=== PATIENT | male | born 1945 | race Caucasian/White ===

== ENCOUNTER → 2017-03-02 | Outpatient (CLI) | payer MEDICARE, BC ==
[~2017-03-02] VITALS: Ht 188 cm; Wt 108.0 kg
[~2017-03-02] MED LIST: ADVA115A INH; ALBU17IN INH; AVOD0.5C PO; FLOM5CAP PO; INSUHUMDS SC; INSULANT SC; LIDOCAINE 2% INJ 100 MG/5 ML SDV (FOR ANES.) As Ordered ONE; LIPI20TA PO; LISI40TAB PO; LR 1,000 ML IV SCH; METF500T PO; METO-207 PO; MULTLIQ7 PO; NEXI40CA PO; PROPOFOL 200 MG/20 ML VIAL As Ordered ONE
--- NOTE | 2017-03-02 14:18 | ROOR ---
Patient Name: Ko Pickard Procedure Date: 03/02/2017 1:30 PM Date of : 1945 Age: 71 Room: [facility] Gender: Male Note Status: Finalized Procedure: Colonoscopy Indications: Screening for colorectal malignant neoplasm, Last colonoscopy 10 years ago Providers: Brando Michael MD Referring MD: Conner Garcia MD Requesting Provider: Medicines: Monitored Anesthesia Care Complications: No immediate complications. Procedure: Pre-Anesthesia Assessment: - Prior to the procedure, a History and Physical was performed, and patient medications and allergies were reviewed. The patient is competent. The risks and benefits of the procedure and the sedation options and risks were discussed with the patient. All questions were answered and informed consent was obtained. Patient identification and proposed procedure were verified by the physician, the nurse and the anesthesiologist in the procedure room. Mental Status Examination: alert and oriented. Airway Examination: normal oropharyngeal airway and neck mobility. CV Examination: regular rate and rhythm. Prophylactic Antibiotics: The patient does not require prophylactic antibiotics. Prior Anticoagulants: The patient has taken no previous anticoagulant or antiplatelet agents. ASA Grade Assessment: III - A patient with severe systemic disease. After reviewing the risks and benefits, the patient was deemed in satisfactory condition to undergo the procedure. The anesthesia plan was to use monitored anesthesia care (MAC). Immediately prior to administration of medications, the patient was re-assessed for adequacy to receive sedatives. The heart rate, respiratory rate, oxygen saturations, blood pressure, adequacy of pulmonary ventilation, and response to care were monitored throughout the procedure. The physical status of the patient was re-assessed after the procedure. The Colonoscope was introduced through the anus and advanced to the cecum, identified by appendiceal orifice and ileocecal valve. The colonoscopy was performed without difficulty. The patient tolerated the procedure well. The quality of the bowel preparation was good. Findings: The perianal and digital rectal examinations were normal. A 4 mm polyp was found in the sigmoid colon. The polyp was 3-4mm and appeared inflamed. The appearance was similar to a pyogenic granuloma. Biopsies were taken with a cold forceps for histology. Estimated blood loss was minimal. The exam was otherwise without abnormality. Impression: - One 4 mm polyp in the sigmoid colon. Biopsied. - The examination was otherwise normal. Recommendation: - Discharge patient to home. - Resume previous diet. - Continue present medications. - Await pathology results. - Telephone endoscopist for pathology results in 10 days. Brando Michael MD 03/02/2017 2:17:55 PM Number of Addenda: 0 Note Initiated On: 03/02/2017 1:30 PM Estimated Blood Loss: Estimated blood loss was minimal.
[2017-03-02 14:51] VITALS: BP 157/78
== END | disposition home or self-care (01) ==
LOC: M OPP 12:56
PROVIDERS: ATTEND Surgery
DX: Z12.11 Encounter for screening for malignant neoplasm of colon (principal); K63.5 Polyp of colon; I10 Essential (primary) hypertension; E78.00 Pure hypercholesterolemia, unspecified; E11.9 Type 2 diabetes mellitus without complications; K74.60 Unspecified cirrhosis of liver; K21.9 Gastro-esophageal reflux disease without esophagitis; G57.93 Unspecified mononeuropathy of bilateral lower limbs; J44.9 Chronic obstructive pulmonary disease, unspecified; N40.0 Benign prostatic hyperplasia without lower urinary tract symptoms; Z79.899 Other long term (current) drug therapy; Z79.51 Long term (current) use of inhaled steroids; Z79.84 Long term (current) use of oral hypoglycemic drugs; Z79.4 Long term (current) use of insulin; Z95.5 Presence of coronary angioplasty implant and graft

== ENCOUNTER → 2017-04-15 | Outpatient (REF) | payer MEDICARE, BC ==
[~2017-04-15] MED LIST changes: -LIDOCAINE 2% INJ 100 MG/5 ML SDV (FOR ANES.) As Ordered ONE; -LR 1,000 ML IV SCH; -METF500T PO; +METF500T13 PO; -METO-207 PO; +METO1TAB7 PO; -PROPOFOL 200 MG/20 ML VIAL As Ordered ONE
== END ==
LOC: M LAB REF 12:02
PROVIDERS: ATTEND Family Medicine
DX: Z11.59 Encounter for screening for other viral diseases (principal)

== ENCOUNTER → 2019-11-06 | Outpatient (CLI) | payer MEDICARE, BC ==
[~2019-11-06] MED LIST changes: +CLIN300C5 PO; +CREO12CA PO; +FLOM0.4C39 PO; -FLOM5CAP PO; +LISI40TA PO; -LISI40TAB PO; +PANT40TA3 PO
[2019-11-06 18:28] LABS: BASO % 0.5 % (0.0-1.0); EOS # 0.1 10^3/uL (0.0-0.5); EOS % 0.9 % (0.0-3.0); HEMATOCRIT 41.1 % (42.0-52.0); HEMOGLOBIN 13.6 g/dl (13.5-17.5); LYMPH # 0.8 10^3/uL (1.5-5.0); LYMPH % 12.8 % (24.0-44.0); MEAN CORPUSCULAR HEMOGLOBIN 30.2 pg (27.0-33.0); MEAN CORPUSCULAR HGB CONC 33.1 g/dl (32.0-36.5); MEAN CORPUSCULAR VOLUME 91.3 fl (80.0-96.0); MONO # 0.6 10^3/uL (0.0-0.8); MONO % 9.1 % (0.0-5.0); NEUTROPHILS % 76.5 % (36.0-66.0); PLATELET COUNT, AUTOMATED 129 10^3/uL (150-450); WHITE BLOOD COUNT 6.5 10^3/uL (4.0-10.0)
[2019-11-06 18:32] LABS: BLOOD UREA NITROGEN 12 MG/DL (7-18); CARBON DIOXIDE LEVEL 32 MEQ/L (21-32); CHLORIDE LEVEL 98 MEQ/L (98-107); CREATININE FOR GFR 0.81 MG/DL (0.70-1.30); GLOMERULAR FILTRATION RATE > 60.0 (>42); GLUCOSE, FASTING 90 MG/DL (70-100); POTASSIUM SERUM 4.2 MEQ/L (3.5-5.1); SODIUM LEVEL 135 MEQ/L (136-145)
[2019-11-06 19:15] LABS: ERYTHROCYTE SEDIMENTATION RATE 23 mm/hr (0-20)
== END ==
LOC: M WUC 13:39
PROVIDERS: ATTEND Physician Assistant
DX: S91.302A Unspecified open wound, left foot, initial encounter (principal)

== ENCOUNTER → 2019-11-08 | Outpatient (REF) | payer MEDICARE, BC | LOC: M LAB REF 11:41 | PROVIDERS: ATTEND Physician Assistant | DX: S91.302A Unspecified open wound, left foot, initial encounter (principal); X58.XXXA Exposure to other specified factors, initial encounter; Y92.9 Unspecified place or not applicable ==

== ENCOUNTER → 2019-11-08 | Outpatient (CLI) | payer MEDICARE, BC ==
--- NOTE | 2019-11-08 10:21 | REP ---
Left foot four views: There are no comparisons. There is a healed fracture at the neck of the fifth digit metatarsal. There is demineralization. No acute fracture is identified. There is PIP and DIP joint space narrowing compatible with early osteoarthritis. I suspect soft tissue edema of the forefoot. This should be confirmed clinically. Electronically Signed by Naldo Quinn MD 11/08/2019 10:12 A
== END ==
LOC: M WUC 09:13
PROVIDERS: ATTEND Physician Assistant
DX: M79.672 Pain in left foot (principal); S91.302A Unspecified open wound, left foot, initial encounter; X58.XXXA Exposure to other specified factors, initial encounter; Y92.9 Unspecified place or not applicable

== ENCOUNTER 2019-11-09 14:52 | Day surgery (SDC) | payer MEDICARE, BC ==
[~2019-11-09] VITALS: Ht 190.5 cm; Wt 96.2 kg
[~2019-11-09 14:52] MED LIST changes: -CLIN300C5 PO; -CREO12CA PO; -PANT40TA3 PO; +PIPERACILLIN/TAZOBACTAM SOD 3.375 GM in D5W MINI-BAG PLUS 50 ML IV ONE
[2019-11-09] MEDS ORDERED: CLIN300C5 PO (15:32)
[2019-11-09] MEDS ORDERED: PANT40TA3 PO (16:27)
[2019-11-09] MEDS ORDERED: CREO12CA PO (16:27)
[2019-11-09] MEDS ORDERED: dexameTHASONE 4 MG/ML 1ML VIAL (J1100) As Ordered ONE (16:52)
[2019-11-09] MEDS ORDERED: ONDANSETRON 4MG/2ML VIAL (J2405) As Ordered ONE (16:52)
[2019-11-09] MEDS ORDERED: BUPIVACAINE HCL 0.5% 30 ML VIAL As Ordered ONE (16:55)
[2019-11-09] MEDS ORDERED: fentaNYL 100 MCG/2 ML INJECTION (J3010) As Ordered ONE (16:55)
[2019-11-09] MEDS ORDERED: propofoL 500 MG/50 ML VIAL As Ordered ONE (16:55)
[2019-11-09] MEDS ORDERED: MIDAZOLAM INJ 2 MG/2 ML VIAL (J2250) As Ordered ONE (16:55)
[2019-11-09] MEDS ORDERED: LIDOCAINE 2% MDV 20 ML VIAL As Ordered ONE (16:55)
[2019-11-09] MEDS ORDERED: GENTAMICIN SULF INJ 80MG/2ML VIAL (J1580) As Ordered ONE (17:26)
[2019-11-09 19:00] VITALS: BP 166/78
--- NOTE | 2019-11-09 22:21 | RO ---
DATE OF PROCEDURE: 11/09/2019 PREPROCEDURE DIAGNOSIS: Probable retained foreign body left foot. POSTPROCEDURE DIAGNOSIS: Probable retained foreign body left foot. PROCEDURE PERFORMED: Exploration of puncture wound and debridement with removal of foreign body plantar surface left foot. SURGEON: Hans Ray DPM SHORTS SIFTER: None. ANESTHESIA: Local monitored anesthesia care (MAC). IRRIGATION: Dilute gentamicin solution, 1 liter, low pressure pulse lavage system. IMPLANTABLES UTILIZED: Quarter-inch Iodoform gauze. HEMOSTASIS: None. ESTIMATED BLOOD LOSS: 5 mL. DESCRIPTION OF PROCEDURE: On 11/09/2019, this 74-year-old white male was taken from his hospital room to the operating room and placed on the operating table in the supine position. Following the induction of IV sedation and local and regional anesthesia, the left lower extremity was prepped and draped in the usual aseptic manner. Attention was directed to the plantar surface of the foot and inferior to the base of the 5th metatarsal was a puncture wound. Two semi-elliptical incisions were placed around this puncture wound debriding the wound. Utilizing a rongeur and curette, the wound was explored. There was a small fiber of apparent sock in the wound. This was sent along with aerobic and anaerobic culture. The wound was flushed with one liter of dilute gentamicin solution with a low pressure pulse lavage system. The wound was packed with quarter-inch Iodoform gauze and a dry sterile dressing was applied. The patient is presently on clindamycin 300 mg every 6 hours. This will be changed according to his culture and sensitivity. Postoperative instructions were given upon discharge.
--- NOTE | 2019-11-10 00:59 | ECGEPIP ---
[facility] Test Date: 2019-11-09 Pat Name: JW ROSENBERG Department: Room: - Gender: Male [employer] Technician: MARTHA : 1945 Requested By: Hans Ray Order Number: [id number] Reading MD: Gokul Swan Measurements Intervals [place] Rate: 80 P: 58 NE: 245 QRS: -9 QRSD: 152 T: 45 QT: 388 QTc: 450 Interpretive Statements SINUS RHYTHM WITH FIRST DEGREE AV BLOCK RIGHT BUNDLE BRANCH BLOCK NO PRIOR TRACING IN THE SYSTEM Electronically Signed on 11-10-2019 0:58:48 EST by Gokul Swan
== END 2019-11-09 19:10 | disposition home or self-care (01) ==
LOC: M SDC 14:52
PROVIDERS: ATTEND Podiatrist
DX: S91.342A Puncture wound with foreign body, left foot, initial encounter (principal); W45.8XXA Other foreign body or object entering through skin, initial encounter; Y92.89 Other specified places as the place of occurrence of the external cause; L84 Corns and callosities; B35.1 Tinea unguium; L85.2 Keratosis punctata (palmaris et plantaris); L03.116 Cellulitis of left lower limb; I10 Essential (primary) hypertension; E78.5 Hyperlipidemia, unspecified; E11.42 Type 2 diabetes mellitus with diabetic polyneuropathy; K21.9 Gastro-esophageal reflux disease without esophagitis; Z95.1 Presence of aortocoronary bypass graft; Z79.899 Other long term (current) drug therapy; Z79.2 Long term (current) use of antibiotics; Z79.51 Long term (current) use of inhaled steroids; Z79.4 Long term (current) use of insulin
CPT/HCPCS: 28190; 87070; 87075; 87077; 87186; 87205; 93005; J1100; J1580; J2250; J2405; J3010

== ENCOUNTER 2019-11-25 11:00 | Emergency (ER) | payer MEDICARE, BC ==
[~2019-11-25] VITALS: Ht 190.5 cm; Wt 100.0 kg
[~2019-11-25 11:00] MED LIST changes: +CLIN300C5 PO; +CREO12CA PO; +PANT40TA3 PO; -PIPERACILLIN/TAZOBACTAM SOD 3.375 GM in D5W MINI-BAG PLUS 50 ML IV ONE
[2019-11-25] MEDS ORDERED: ALBU8.5H INH (11:24)
[2019-11-25] MEDS ORDERED: DOXY100T27 PO (11:24)
[2019-11-25] MEDS ORDERED: HUMA100I5 SQ (11:38)
[2019-11-25] MEDS ORDERED: SILVER TOP (11:38)
[2019-11-25 11:44] LABS: BASO % 0.3 % (0.0-1.0); EOS # 0.1 10^3/uL (0.0-0.5); EOS % 0.8 % (0.0-3.0); HEMOGLOBIN 12.1 g/dl (13.5-17.5); LYMPH # 0.4 10^3/uL (1.5-5.0); LYMPH % 4.7 % (24.0-44.0); MEAN CORPUSCULAR HEMOGLOBIN 29.6 pg (27.0-33.0); MEAN CORPUSCULAR HGB CONC 32.7 g/dl (32.0-36.5); MEAN CORPUSCULAR VOLUME 90.5 fl (80.0-96.0); MONO # 0.5 10^3/uL (0.0-0.8); MONO % 7.3 % (0.0-5.0); NEUTROPHILS # 6.4 10^3/uL (1.5-8.5); NEUTROPHILS % 86.6 % (36.0-66.0); PLATELET COUNT, AUTOMATED 159 10^3/uL (150-450); RED BLOOD COUNT 4.09 10^6/uL (4.30-6.10); WHITE BLOOD COUNT 7.4 10^3/uL (4.0-10.0)
--- NOTE | 2019-11-25 11:59 | REP ---
Clinical: Shortness of breath . Comparison: 10/16/2009 . Findings: The mediastinum and cardiac silhouette are stable and within normal limits for portable technique. Evidence of prior sternotomy again noted. The lung tim are clear without acute consolidation, effusion, or pneumothorax. Skeletal structures are intact. Impression: No focal consolidation or effusion. Electronically Signed by Josh Bartholomew MD 11/25/2019 11:51 A
[2019-11-25 12:18] LABS: BLOOD UREA NITROGEN 16 MG/DL (7-18); CALCIUM LEVEL 8.6 MG/DL (8.8-10.2); CARBON DIOXIDE LEVEL 29 MEQ/L (21-32); CHLORIDE LEVEL 102 MEQ/L (98-107); CK-MB VALUE MASS 6.2 NG/ML (<3.6); CPK CREATINE PHOSPHOKINASE 124 U/L (39-308); CREATININE FOR GFR 0.82 MG/DL (0.70-1.30); GLOMERULAR FILTRATION RATE > 60.0 (>42); GLUCOSE, FASTING 118 MG/DL (70-100); POTASSIUM SERUM 4.2 MEQ/L (3.5-5.1); SODIUM LEVEL 138 MEQ/L (136-145); TROPONIN I 0.03 NG/ML (< 0.10)
[2019-11-25 12:44] LABS: INFLUENZA A AMPLIFICATION NEGATIVE (NEGATIVE); INFLUENZA B AMPLIFICATION POSITIVE (NEGATIVE)
[2019-11-25 13:21] LABS: NT-PRO BNP 204 PG/ML (<125)
--- NOTE | 2019-11-25 15:10 | REP ---
Clinical: Right groin pain. Technique: Real time mensah scale and color evaluation using linear high frequency transducer. Findings: Moderate ultrasound examination of the right groin demonstrates normal structures without hernia. No fluid collection or mass. Incidental small lymph nodes are identified measuring 11 and 9 mm. Impression: No hernia. Electronically Signed by Josh Bartholomew MD 11/25/2019 03:01 P
[2019-11-25 16:52] VITALS: BP 168/88
--- NOTE | 2019-11-26 05:38 | ECGEPIP ---
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
== END 2019-11-25 17:15 | disposition home or self-care (01) ==
LOC: M ED 11:00 → EDBD 11:00 → M ED 17:15
DX: J10.89 Influenza due to other identified influenza virus with other manifestations (principal); S76.211A Strain of adductor muscle, fascia and tendon of right thigh, initial encounter; X58.XXXA Exposure to other specified factors, initial encounter; Y92.89 Other specified places as the place of occurrence of the external cause; E11.9 Type 2 diabetes mellitus without complications; I10 Essential (primary) hypertension; J44.9 Chronic obstructive pulmonary disease, unspecified; Z79.899 Other long term (current) drug therapy; Z79.4 Long term (current) use of insulin; Z87.891 Personal history of nicotine dependence

== ENCOUNTER → 2019-12-13 | Outpatient (REF) | payer MEDICARE, BC ==
[~2019-12-13] MED LIST changes: +ALBU8.5H INH; +DOXY100T27 PO; +HUMA100I5 SQ; +SILVER TOP
== END ==
LOC: M LAB REF 15:36
PROVIDERS: ATTEND Podiatrist
DX: L03.119 Cellulitis of unspecified part of limb (principal); M79.672 Pain in left foot

== ENCOUNTER → 2020-08-16 | Outpatient (REF) | payer MEDICARE, BC ==
[~2020-08-16] MED LIST changes: +PANT40TA29 PO; -PANT40TA3 PO
[2020-08-16 17:33] LABS: FERRITIN 31 NG/ML (26-388); IRON (FE) 105 UG/DL (65-175); PERCENT SATURATION 27.5 % (19.7-50.0); TOTAL IRON BINDING CAPACITY 382 UG/DL (250-450)
[2020-08-16 17:42] LABS: FOLATE > 24.0 NG/ML; VITAMIN B12 LEVEL 857 PG/ML
== END ==
LOC: M LAB REF 16:16
PROVIDERS: ATTEND Family Medicine
DX: D64.9 Anemia, unspecified (principal)

== ENCOUNTER 2021-04-14 12:06 | Observation (INO) | payer MEDICARE, BC ==
[~2021-04-14] VITALS: Ht 188 cm; Wt 96.5 kg
[2021-04-14] MEDS: ATORVASTATIN 20 MG TAB PO SCH (09:00)
[~2021-04-14 12:06] MED LIST changes: -CLIN300C5 PO; +CLIN300C6 PO; -LISI40TA PO; +LISI40TA4 PO
[2021-04-14 14:53] LABS: BASO % 0.4 % (0.0-1.0); EOS # 0.1 10^3/uL (0.0-0.5); EOS % 0.9 % (0.0-3.0); HEMATOCRIT 43.1 % (42.0-52.0); HEMOGLOBIN 14.1 g/dl (13.5-17.5); LYMPH # 0.6 10^3/uL (1.5-5.0); LYMPH % 8.8 % (24.0-44.0); MEAN CORPUSCULAR HEMOGLOBIN 29.8 pg (27.0-33.0); MEAN CORPUSCULAR HGB CONC 32.7 g/dl (32.0-36.5); MEAN CORPUSCULAR VOLUME 91.1 fl (80.0-96.0); MONO # 0.4 10^3/uL (0.0-0.8); MONO % 5.7 % (2.0-8.0); NEUTROPHILS # 5.9 10^3/uL (1.5-8.5); NEUTROPHILS % 83.9 % (36.0-66.0); PLATELET COUNT, AUTOMATED 114 10^3/uL (150-450); RED BLOOD COUNT 4.73 10^6/uL (4.30-6.10)
[2021-04-14] MEDS ORDERED: TRES100I SC (15:05)
[2021-04-14 15:10] LABS: BLOOD UREA NITROGEN 14 MG/DL (7-18); CALCIUM LEVEL 9.1 MG/DL (8.8-10.2); CARBON DIOXIDE LEVEL 29 MEQ/L (21-32); CHLORIDE LEVEL 104 MEQ/L (98-107); CREATININE FOR GFR 0.75 MG/DL (0.70-1.30); GLOMERULAR FILTRATION RATE > 60.0 (>42); GLUCOSE, FASTING 111 MG/DL (70-100); POTASSIUM SERUM 4.1 MEQ/L (3.5-5.1); SODIUM LEVEL 139 MEQ/L (136-145)
--- NOTE | 2021-04-14 16:22 | REP ---
INDICATION: fall COMPARISON: None. TECHNIQUE: Axial noncontrast images from the skull base to the thoracic inlet with coronal reformations. This CT examination was performed using the following dose reduction techniques: Automated exposure control, adjustment of mA and/or kv according to the patient's size, and use of iterative reconstruction technique. FINDINGS: Atrophy with periventricular leukomalacia and microvascular ischemic changes are appreciated. The ventricles and sulci are symmetric. Herrera-white differentiation is maintained. There is no evidence for acute intracranial hemorrhage, mass/mass effect, pathology or infarction. No extra-axial fluid collection. Calvarium is intact. Paranasal sinuses and mastoid air cells are clear. IMPRESSION: Atrophy and microvascular ischemic changes. No acute intracranial hemorrhage, infarction, or mass/mass effect. <Electronically signed by Josh Bartholomew > 04/14/21 [id number]
--- NOTE | 2021-04-14 16:30 | REP ---
INDICATION: glc issue COMPARISON: 11/25/2019 TECHNIQUE: Portable AP view of the chest FINDINGS: The mediastinum and cardiac silhouette are stable and within normal limits for portable technique. Prior sternotomy and CABG. The lung tim are clear without acute consolidation, effusion, or pneumothorax. Skeletal structures are intact. IMPRESSION: No acute cardiopulmonary process appreciated. <Electronically signed by Josh Bartholomew > 04/14/21 [id number]
[2021-04-14] MEDS ORDERED: GLUCAGON INJ 1MG VIAL SC PRN (17:20)
[2021-04-14] MEDS ORDERED: DEXTROSE 50% 50 ML SYRINGE IV PRN (17:20)
[2021-04-14] MEDS ORDERED: GLUCOSE 4GM CHEW TABLET PO PRN (17:20)
[2021-04-14] MEDS ORDERED: ALBUTEROL 90 MCG/ACT 8GM HFA INHALER INH PRN (17:25)
[2021-04-14] MEDS ORDERED: METO50TA7 PO (17:45)
[2021-04-14] MEDS ORDERED: FLUT1BLS5 INH (17:45)
[2021-04-14] MEDS ORDERED: TAMS1CAP17 PO (17:45)
[2021-04-14 18:00] LABS: RSV AMPLIFICATION NEGATIVE (NEGATIVE)
[2021-04-14] MEDS ORDERED: METOPROLOL SUCC (TopROL XL) 50MG **XL** TAB PO ONE (18:00)
[2021-04-14] MEDS ORDERED: lisinopriL 40 MG TAB PO ONE (18:00)
[2021-04-14] MEDS: CREON-24 CAPSULE PO SCH (18:00)
[2021-04-14] MEDS ORDERED: AMMO12LO TOP (18:09)
[2021-04-14 18:17] LABS: HEMOGLOBIN A1c 7.3 %
--- NOTE | 2021-04-14 18:48 | HPE ---
HISTORY AND PHYSICAL DATE OF ADMISSION: 04/14/2021 PRIMARY CARE PROVIDER: Conner Garcia MD PRINCIPAL DIAGNOSIS: Repeated hypoglycemia with unresponsiveness requiring bystander intervention. HISTORY: Ko Pickard is a type-2 diabetic now on Insulin who is followed by Dr. Conner Garcia. He was hypoglycemic this morning. His found him seizing. She gave him Glucagon and glucose gel and he recovered. He then had another hypoglycemic episode later this morning. Ambulance was called. Blood sugar by the time he got to the Emergency Room was up in the 300s. I do not think it was checked during the event but the event sounded hypoglycemic. PAST MEDICAL HISTORY: Hypertensive heart disease, hyperlipidemia, GE reflux, COPD, history of a liver abscess, coronary artery disease status post CABG, peptic ulcer disease status post gastric surgery. He has type-2 diabetes with diabetic polyneuropathy. He was treated for cellulitis of his left lower extremity by Dr. Ray 10/30. He had a foreign body surgically excised from his left foot as well. 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 He had multiple GI bleeds back in the . He has history of chronic pancreatitis. 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 He had a deep venous thrombosis 11/13. He was on anticoagulant until he had recurrent GI bleeds from his AVMs. He was taken off anticoagulation and IVC filter was placed. PAST SURGICAL HISTORY: Lung surgery for some pleuritic problems, coronary artery bypass grafting, surgery on his stomach presumably for an ulcer. He had a Billroth I gastrojejunostomy, cholejejunostomy and pancreatojejunostomy. He had recurrent pancreatitis prior to his surgery. He had absolute pancreatitis up until surgical intervention. He probably has diabetic gastroparesis. SOCIAL HISTORY: He is . He is retired from [employer]. Stopped smoking in 1995. Stopped drinking alcohol in 1988. FAMILY HISTORY: Father of coronary disease at 61. Mother had breast cancer. Son with hypertension. Sister with Crohn's disease. MEDICATIONS: Per ER flow sheet. REVIEW OF SYSTEMS: He is back to baseline mental status. Denies chest pain, shortness of breath, palpitations. He has had no recent bleeding. No recent pancreatitis. He says his hemoglobin A1c is in the mid 7's. PHYSICAL EXAMINATION: VITAL SIGNS: Blood pressure is 201/93, pulse of 86, respiratory rate 19, 98% O2 saturation. GENERAL APPEARANCE: He is alert, conversant, no distress. He is eating without difficulty. HEENT: Grossly unremarkable. No carotid bruits. LUNGS: Clear. HEART: Regular rate and rhythm. ABDOMEN: Soft, nontender. No masses. Numerous surgical scars. EXTREMITIES: Decreased sensation to light touch in both feet. Distal pulses are reduced but palpable. Moves arms and legs with equal strength. No focal deficits of strength or coordination testing. He has a skin tear of the left forearm that is already dressed. LABS: Sodium 139, potassium 4.1, BUN 14, creatinine 0.7, glucose 111, white count 7, hemoglobin 14, platelets 114. IMPRESSION AND PLAN: 1. Hypoglycemia requiring bystander () intervention with Glucagon, recurrent today. He is on Tresiba which has an over 40 hour duration of action once it reaches therapeutic dosing. Therefore he is at risk of hypoglycemia for the next 24 hours at least. He will be admitted to a monitored bed, frequent fingerstick blood sugars. IV containing a 5% dextrose will be hung. He is eating well. Hypoglycemia protocol has been ordered. We will hold his Tresiba. He will be on a sliding scale Insulin coverage for hyperglycemia. 2. We will discuss therapeutic goals with his primary care provider. He has recurrent hypoglycemia to the point where his is very fearful with giving him Glucagon and a more relaxed target might be beneficial particularly with his history of established vascular disease. 3. Hypertension. Blood pressure is quite elevated. He has not had his medications today. We will start his antihypertensives and augment as necessary. 4. Hyperlipidemia. Continue his atorvastatin. 5. Bronchiectatic disease. Continue bronchodilator therapy. 6. Pancreatic insufficiency. Continue his pancreatic enzyme therapy. 7. BPH. Continue his Avodart and tamsulosin. Hopefully he will be able to go home tomorrow but that would depend on how his blood sugars are doing. Tresiba has a duration of over 40 hours and might require two days in the hospital. [facility] LANG[facility] TISCH HOSPITALAileen
[2021-04-14 19:11] LABS: CK-MB VALUE MASS 8.4 NG/ML (<3.6); MB/CK RELATIVE INDEX 2.28 (< OR =4); TROPONIN I 0.03 NG/ML (< 0.10)
[2021-04-14] MEDS: HumaLOG INSULIN (NovoLOG) PER UNIT SC SCH (19:12)
[2021-04-14] MEDS: D5W/0.45% SODIUM CHLORIDE 1,000 ML IV SCH (19:13)
[2021-04-14] MEDS: ADVAIR HFA 115/21MCG INHALER INH SCH (19:42)
[2021-04-14] MEDS ORDERED: METOPROLOL TART 50 MG TAB PO SCH (21:00)
[2021-04-14] MEDS ORDERED: HumaLOG INSULIN (NovoLOG) PER UNIT SC SCH (21:00)
[2021-04-14] MEDS ORDERED: DUTASTERIDE 0.5 MG CAP (AVODART) PO SCH (21:00)
[2021-04-14] MEDS ORDERED: TAMSULOSIN 0.4 MG CAP PO SCH (21:00)
[2021-04-14 22:30] VITALS: BP 187/80
[2021-04-15] VITALS: BP 187/80
[2021-04-15 01:48] LABS: CK-MB VALUE MASS 6.1 NG/ML (<3.6); MB/CK RELATIVE INDEX 1.8 (< OR =4); TROPONIN I 0.04 NG/ML (< 0.10)
[2021-04-15] MEDS: D5W/0.45% SODIUM CHLORIDE 1,000 ML IV SCH (02:27)
[2021-04-15 04:00] VITALS: BP_SYST 120; BP_SYST 128; BP_DIAS 58; BP_DIAS 66
[2021-04-15 05:09] LABS: HEMATOCRIT 36.7 % (42.0-52.0); HEMOGLOBIN 12.2 g/dl (13.5-17.5); MEAN CORPUSCULAR HEMOGLOBIN 30.1 pg (27.0-33.0); MEAN CORPUSCULAR HGB CONC 33.2 g/dl (32.0-36.5); MEAN CORPUSCULAR VOLUME 90.6 fl (80.0-96.0); PLATELET COUNT, AUTOMATED 106 10^3/uL (150-450); RED BLOOD COUNT 4.05 10^6/uL (4.30-6.10)
[2021-04-15 05:15] LABS: BLOOD UREA NITROGEN 10 MG/DL (7-18); CALCIUM LEVEL 8.1 MG/DL (8.8-10.2); CARBON DIOXIDE LEVEL 29 MEQ/L (21-32); CHLORIDE LEVEL 102 MEQ/L (98-107); GLOMERULAR FILTRATION RATE > 60.0 (>42); GLUCOSE, FASTING 245 MG/DL (70-100); POTASSIUM SERUM 3.6 MEQ/L (3.5-5.1); SODIUM LEVEL 136 MEQ/L (136-145)
[2021-04-15 07:03] VITALS: BP 120/58
[2021-04-15] MEDS: ADVAIR HFA 115/21MCG INHALER INH SCH (07:46)
[2021-04-15] MEDS: CREON-24 CAPSULE PO SCH ×2 (07:51→11:58)
[2021-04-15] MEDS: ENOXAPARIN 40MG/0.4ML SYRINGE (J1650 PER 10MG) SC SCH ×2 (07:51→07:57)
[2021-04-15 07:52] VITALS: BP 120/58
[2021-04-15] MEDS: ATORVASTATIN 20 MG TAB PO SCH (07:52)
[2021-04-15] MEDS: HumaLOG INSULIN (NovoLOG) PER UNIT SC SCH ×2 (07:52→11:59)
[2021-04-15] MEDS ORDERED: lisinopriL 40 MG TAB PO SCH (09:00)
[2021-04-15] MEDS ORDERED: PANTOPRAZOLE 40MG TAB (PROTONIX) PO SCH (09:00)
[2021-04-15] MEDS ORDERED: METOPROLOL TART 50 MG TAB PO SCH (09:00)
[2021-04-15] MEDS ORDERED: TRES100I SC (09:38)
[2021-04-15 10:15] LABS: CK-MB VALUE MASS 4.7 NG/ML (<3.6); MB/CK RELATIVE INDEX 1.12 (< OR =4); TROPONIN I 0.04 NG/ML (< 0.10)
--- NOTE | 2021-04-15 16:18 | DS.PDOC ---
Discharge Summary General Date of Admission Apr 14, 2021 at 12:07 Date of Discharge 04/15/2021 Discharge Summary PROCEDURES PERFORMED DURING STAY: [None]. DISCHARGE DIAGNOSES: 1. hypoglycemia 2. medical non-compliance SECONDARY DIAGNOSES: #CAD/CABG #Billroth I gastrojejunostomy, cholejejunostomy and pancreatojejunostomy. #HTN with Hypertensive heart disease #HLD #COPD #Hx liver abscess #IDDM #AVMs/GI bleed #Peyronie's disorder #BPH, high PSA with a negative prostate biopsy #DVT 11/13. He was on anticoagulant until he had recurrent GI bleeds from his AVMs. He was taken off anticoagulation and IVC filter was placed. COMPLICATIONS/CHIEF COMPLAINT: Drug Induced Hypoglycemia. HPI/Hospital Course: Ko Pickard is a type-2 diabetic now on Insulin who is followed by Dr. Conner Garcia. He was hypoglycemic this morning. His found him seizing. She gave him Glucagon and glucose gel and he recovered. He then had another hypoglycemic episode later this morning. Ambulance was called. Blood sugar by the time he got to the Emergency Room was up in the 300s. I do not think it was checked during the event but the event sounded hypoglycemic. He was admitted for further evaluation and treatment. His case was discussed with his PCP. He is non-compliant with dietary restrictions at home, and possibly with his medications. He is not interested in home health. His blood sugars were mildly elevated through his hospital stay. On further discussion with his PCP, decision was made to discharge home with reduced basal insulin. DISCHARGE MEDICATIONS: Please see below. ALLERGIES: Please see below. PHYSICAL EXAMINATION ON DISCHARGE: VITAL SIGNS: Please see below. GENERAL APPEARANCE: He is alert, conversant, no distress. HEENT: Grossly unremarkable. No carotid bruits. NC/AT LUNGS: Clear. HEART: Regular rate and rhythm. ABDOMEN: Soft, nontender. No masses. Numerous surgical scars. EXTREMITIES: Decreased sensation to light touch in both feet. Distal pulses are reduced but palpable. He has a skin tear of the left forearm that is already dressed. Neuro: No gross focal deficits Psych: AAOx3 LABORATORY DATA: Please see below. ACTIVITY: [As tolerated]. DISPOSITION: 01 Home, Self-Care. DISCHARGE INSTRUCTIONS: 1. Follow up with PCP in 1-2 days. 2. Recommend follow up with endocrinology. DISCHARGE CONDITION: [Stable]. TIME SPENT ON DISCHARGE: 35 minutes. Vital Signs/I&Os Vital Signs Date Time Temp Pulse Resp B/P (MAP) Pulse Ox O2 Delivery O2 Flow Rate FiO2 04/15/21 07:52 64 120/58 04/15/21 07:03 99.1 20 96 Room Air I&O- Last 24 Hours up to 6 AM 04/15/21 06:00 Intake Total 970 ml Output Total 325 ml Balance 645 ml Laboratory Data Labs 24H Laboratory Tests 2 04/14/21 16:46: Bedside Glucose (Misc Panel) 244H 04/14/21 16:59: Coronavirus (COVID-19)(PCR) NEGATIVE, Influenza Type A (RT-PCR) NEGATIVE, Influenza Type B (RT-PCR) NEGATIVE, Respiratory Syncytial Virus (PCR) NEGATIVE 04/14/21 17:45: Bedside Glucose (Misc Panel) 305H 04/14/21 18:29: Total Creatine Kinase 368H, Creatine Kinase MB 8.4H, Creatine Kinase MB Relative Index 2.28, Troponin I 0.03 04/14/21 18:45: Bedside Glucose (Misc Panel) 253H 04/14/21 20:14: Bedside Glucose (Misc Panel) 269H 04/14/21 22:22: Bedside Glucose (Misc Panel) 217H 04/15/21 00:04: Bedside Glucose (Misc Panel) 204H 04/15/21 01:05: Total Creatine Kinase 338H, Creatine Kinase MB 6.1H, Creatine Kinase MB Relative Index 1.80, Troponin I 0.04# 04/15/21 02:19: Bedside Glucose (Misc Panel) 213H 04/15/21 04:09: Bedside Glucose (Misc Panel) 224H 04/15/21 04:31: Nucleated Red Blood Cells % (auto) 0.0, Anion Gap 5L, Glomerular Filtration Rate > 60.0, Calcium Level 8.1L 04/15/21 09:16: Total Creatine Kinase 420H, Creatine Kinase MB 4.7H, Creatine Kinase MB Relative Index 1.12, Troponin I 0.04 CBC/BMP Laboratory Tests 04/15/21 04:31 FSBS Laboratory Tests Test 04/14/21 16:46 04/14/21 17:45 04/14/21 18:45 04/14/21 20:14 Range/Units Bedside Glucose (Misc Panel) 244 305 253 269 83-110 MG/DL Test 04/14/21 22:22 04/15/21 00:04 04/15/21 02:19 04/15/21 04:09 Range/Units Bedside Glucose (Misc Panel) 217 204 213 224 83-110 MG/DL Discharge Medications Scheduled Ammonium Lactate (Ammonium Lactate) 12% Lotion, 1 APPLIC TOP BID, (Reported) Atorvastatin Calcium (Lipitor) 20 Mg Tab, 20 MG PO QHS, (Reported) Fluticasone Propion/Salmeterol (Fluticasone-Salmeterol 250-50) 1 Each Blst.w.dev, 2 PUFF INH BID, (Reported) Insulin Degludec (Tresiba) 100 Unit/1 Ml Vial, 20 UNIT SC DAILY Insulin Human Lispro (Humalog) 1 Units/0.01 Ml Inj, 1 DOSE SC ACHS, (Reported) PER SLIDING SCALE Lisinopril (Lisinopril) 40 Mg Tab, 40 MG PO QHS, (Reported) Metformin HCl (Metformin HCl) 500 Mg Tab, 500 MG PO BID, (Reported) Metoprolol Tartrate (Metoprolol Tartrate) 50 Mg Tablet, 50 MG PO BID, (Reported) Multivit-Minerals/Ferrous Fum (Multivitamin Liquid) 1 Liq Liq, 1 TAB PO DAILY, (Reported) Pancreatic Enzymes (Creon Dr 12,000 Units Capsule) 1 Each Capsule.dr, 48,000 UNIT PO BID, (Reported) Pantoprazole Sodium (Pantoprazole Sodium) 40 Mg Tablet.dr, 40 MG PO 3XW, (Reported) WED,WED,WED Tamsulosin HCl (Flomax) 0.4 Mg Cap, 0.4 MG PO QHS, (Reported) Scheduled PRN Albuterol Sulfate (Albuterol Sulfate Hfa) 8.5 Gm Hfa.aer.ad, 2 PUFFS INH Q4-6HP PRN for SHORTNESS OF BREATH, (Reported) Allergies Coded Allergies: No Known Allergies (Verified Allergy, Unknown, 11/09/19) CHAPINCITO BELL MD Apr 15, 2021 16:18
== END 2021-04-15 14:55 | disposition home or self-care (01) ==
LOC: EDBD 12:06 → M ED 12:06 → M ED INP 12:07 → ENRESERV 19:48 → M PCU 22:01
PROVIDERS: ADMIT Family Medicine; ATTEND Family Medicine
DX: E16.0 Drug-induced hypoglycemia without coma (principal); Z91.19 Patient's noncompliance with other medical treatment and regimen; I25.10 Atherosclerotic heart disease of native coronary artery without angina pectoris; Z95.1 Presence of aortocoronary bypass graft; I11.9 Hypertensive heart disease without heart failure; E78.49 Other hyperlipidemia; J44.9 Chronic obstructive pulmonary disease, unspecified; E11.9 Type 2 diabetes mellitus without complications; N48.6 Induration penis plastica; N40.0 Benign prostatic hyperplasia without lower urinary tract symptoms; Z86.718 Personal history of other venous thrombosis and embolism; Z79.4 Long term (current) use of insulin; Z79.84 Long term (current) use of oral hypoglycemic drugs; Z79.899 Other long term (current) drug therapy
CPT/HCPCS: 36415; 70450; 71045; 80048; 82550; 82553; 83036; 84484; 85025; 85027; 87631; 94640; 96360; 96361; 97161; 99285; G0378

== ENCOUNTER → 2021-06-18 | Outpatient (REF) | payer MEDICARE, BC ==
[~2021-06-18] MED LIST changes: +AMMO12LO TOP; +FLUT1BLS5 INH; +METO50TA7 PO; +TAMS1CAP17 PO; +TRES100I SC
== END ==
LOC: M LAB REF 15:48 → EEVIPCON 15:48
PROVIDERS: ATTEND Podiatrist
DX: M79.671 Pain in right foot (principal)

== ENCOUNTER → 2021-11-06 | Outpatient (REF) | payer MEDICARE, BC ==
[~2021-11-06] MED LIST changes: +CLIN-250 PO; -CLIN300C6 PO
== END ==
LOC: M LAB REF 16:05
PROVIDERS: ATTEND Podiatrist
DX: L03.119 Cellulitis of unspecified part of limb (principal); M79.671 Pain in right foot

== ENCOUNTER → 2021-11-19 | Outpatient (REF) | payer MEDICARE, BC | LOC: M LAB REF 15:32 | PROVIDERS: ATTEND Podiatrist | DX: L03.119 Cellulitis of unspecified part of limb (principal); M79.671 Pain in right foot ==

== ENCOUNTER → 2021-12-01 | Outpatient (REF) | payer MEDICARE, BC | LOC: M LAB REF 11:53 | PROVIDERS: ATTEND Internal Medicine | DX: L02.212 Cutaneous abscess of back [any part, except buttock and flank] (principal) ==

== ENCOUNTER 2021-12-17 14:14 | Observation (INO) | payer MEDICARE, BC ==
[~2021-12-17] VITALS: Ht 180.3 cm; Wt 81.3 kg
[2021-12-17] MEDS: LEVEMIR (INSULIN DETEMIR) 1 UNITS/0.01ML SC SCH (00:07)
[2021-12-17] MEDS ORDERED: BACTDSTA PO (14:23)
[2021-12-17] MEDS ORDERED: PENI500T PO (14:23)
[2021-12-17 15:41] LABS: BASO % 0.5 % (0.0-1.0); EOS # 0.1 10^3/uL (0.0-0.5); EOS % 3.8 % (0.0-3.0); HEMATOCRIT 36.3 % (42.0-52.0); HEMOGLOBIN 11.6 g/dl (13.5-17.5); LYMPH # 0.9 10^3/uL (1.5-5.0); LYMPH % 23.5 % (24.0-44.0); MEAN CORPUSCULAR HEMOGLOBIN 29.7 pg (27.0-33.0); MEAN CORPUSCULAR VOLUME 92.8 fl (80.0-96.0); MONO # 0.4 10^3/uL (0.0-0.8); MONO % 10.2 % (2.0-8.0); NEUTROPHILS # 2.3 10^3/uL (1.5-8.5); PLATELET COUNT, AUTOMATED 103 10^3/uL (150-450); RED BLOOD COUNT 3.91 10^6/uL (4.30-6.10); WHITE BLOOD COUNT 3.7 10^3/uL (4.0-10.0)
[2021-12-17 16:08] LABS: ALBUMIN 3.5 GM/DL (3.2-5.2); BILIRUBIN,DIRECT 0.2 MG/DL (0.0-0.2); BILIRUBIN,TOTAL 0.5 MG/DL (0.2-1.0); CALCIUM LEVEL 9.1 MG/DL (8.8-10.2); CREATININE FOR GFR 1.32 MG/DL (0.70-1.30); GLOMERULAR FILTRATION RATE 56.1 (>42); TOTAL PROTEIN 7.8 GM/DL (6.4-8.2)
[2021-12-17] MEDS ORDERED: DEXTROSE 50% 50 ML SYRINGE IV ONE (16:10)
[2021-12-17] MEDS ORDERED: HumuLIN R (REGULAR) INSULIN (NovoLIN R) **100U/ML** PER UNIT IV ONE (16:10)
[2021-12-17] MEDS ORDERED: CALCIUM CHLORIDE 10% 1 GM/10 ML SYR IV ONE (16:10)
[2021-12-17] MEDS ORDERED: PATIROMER SORBITEX CALCIUM 8.4 GM POWDER PACKET (VELTASSA) PO ONE (16:10)
[2021-12-17] MEDS ORDERED: SODIUM BICARBONATE 4.2% INJ 10ML SYRINGE IV ONE (16:10)
[2021-12-17 16:38] LABS: RSV AMPLIFICATION NEGATIVE (NEGATIVE)
[2021-12-17] MEDS ORDERED: SODIUM BICARBONATE 8.4% INJ 50 ML SYRINGE IV STA (16:44)
[2021-12-17] MEDS ORDERED: ACETAMINOPHEN TAB 650MG DOSE (2X325MG) PO PRN (17:25)
[2021-12-17] MEDS ORDERED: MAALOX 30 ML SUSP *UDC PO PRN (17:25)
[2021-12-17] MEDS ORDERED: MOM 30ML SUSPENSION UDC PO PRN (17:25)
[2021-12-17] MEDS: HumaLOG INSULIN (NovoLOG) PER UNIT SC SCH ×2 (17:30→23:54)
[2021-12-17] MEDS ORDERED: VITMTA PO (17:33)
[2021-12-17] MEDS ORDERED: AVOD0.5C PO (17:33)
[2021-12-17] MEDS ORDERED: TRES1INJ2 SC (17:33)
[2021-12-17] MEDS ORDERED: NEXI40CA PO (17:33)
[2021-12-17] MEDS ORDERED: hydrALAZINE 20MG/ML 1ML VIAL (J0360 PER 20MG) IV PRN (17:35)
[2021-12-17] MEDS ORDERED: HOME MED LIST COMPLETE! XX SCH (17:35)
[2021-12-17] MEDS ORDERED: DEXTROSE 50% 50 ML SYRINGE IV PRN (17:40)
[2021-12-17] MEDS ORDERED: GLUCAGON INJ 1MG VIAL SC PRN (17:40)
[2021-12-17] MEDS ORDERED: GLUCOSE 4GM CHEW TABLET PO PRN (17:40)
[2021-12-17] MEDS: NS 1,000 ML IV SCH (17:41)
[2021-12-17] MEDS ORDERED: ALBUTEROL SULFATE 2.5 MG/0.5 ML INH NEB SOLN INH PRN (18:00)
[2021-12-17] MEDS ORDERED: CREON-12 CAPSULE PO SCH (21:00)
[2021-12-17] MEDS ORDERED: LINEZOLID 600 MG in IV 1 EA IV SCH (21:00)
[2021-12-17] MEDS ORDERED: METOPROLOL TART 50 MG TAB PO SCH (21:00)
[2021-12-17] MEDS: PENICILLIN V POTASSIUM 500 MG TAB PO SCH (23:18)
[2021-12-17 23:30] VITALS: BP 196/80
[2021-12-18] MEDS: LEVEMIR (INSULIN DETEMIR) 1 UNITS/0.01ML SC SCH ×2 (00:06→20:16)
[2021-12-18] MEDS: DOCUSATE SODIUM 100MG CAPSULE PO SCH ×3 (00:06→20:17)
[2021-12-18] MEDS: TAMSULOSIN 0.4 MG CAP PO SCH ×2 (00:06→20:18)
[2021-12-18] MEDS: ATORVASTATIN 20 MG TAB PO SCH ×2 (00:07→20:18)
[2021-12-18 00:21] LABS: BLOOD UREA NITROGEN 17 MG/DL (7-18); CALCIUM LEVEL 9.4 MG/DL (8.8-10.2); CARBON DIOXIDE LEVEL 28 MEQ/L (21-32); CHLORIDE LEVEL 107 MEQ/L (98-107); CREATININE FOR GFR 1.11 MG/DL (0.70-1.30); GLOMERULAR FILTRATION RATE > 60.0 (>42); GLUCOSE, FASTING 132 MG/DL (70-100); POTASSIUM SERUM 4.3 MEQ/L (3.5-5.1); SODIUM LEVEL 138 MEQ/L (136-145)
[2021-12-18 02:00] VITALS: BP 156/75
[2021-12-18] MEDS: DUTASTERIDE 0.5 MG CAP (AVODART) PO SCH ×2 (02:15→20:17)
[2021-12-18] MEDS: HEPARIN SOD (PORCINE) 5000UNITS/ML 1ML VIAL/SYRINGE SC SCH ×3 (02:16→20:17)
[2021-12-18] MEDS: LINEZOLID 600MG TABLET (ZYVOX) PO SCH ×3 (02:17→20:17)
[2021-12-18] MEDS: PENICILLIN V POTASSIUM 500 MG TAB PO SCH ×4 (02:17→18:24)
[2021-12-18] MEDS: LACTIC ACID 12% LOTION 225 GM BTL TOP SCH ×3 (02:18→20:20)
[2021-12-18 03:02] LABS: FREE THYROXINE INDEX 2.3 % (1.4-3.8); THYROID STIMULATING HORMONE 2.81 uIU/ML (0.358-3.740); THYROXINE (T4) 6.1 UG/DL (4.5-12.0)
[2021-12-18 03:02] LABS: CK-MB VALUE MASS 5.1 NG/ML (<3.6); MB/CK RELATIVE INDEX 4.02 (< OR =4)
[2021-12-18] MEDS: NS 1,000 ML IV SCH (04:08)
[2021-12-18 04:50] VITALS: BP 140/65
[2021-12-18 06:03] LABS: HEMATOCRIT 35.3 % (42.0-52.0); HEMOGLOBIN 11.6 g/dl (13.5-17.5); MEAN CORPUSCULAR HEMOGLOBIN 29.8 pg (27.0-33.0); MEAN CORPUSCULAR HGB CONC 32.9 g/dl (32.0-36.5); MEAN CORPUSCULAR VOLUME 90.7 fl (80.0-96.0); RED BLOOD COUNT 3.89 10^6/uL (4.30-6.10); WHITE BLOOD COUNT 3.9 10^3/uL (4.0-10.0)
[2021-12-18 06:31] LABS: BLOOD UREA NITROGEN 16 MG/DL (7-18); CALCIUM LEVEL 9.2 MG/DL (8.8-10.2); CARBON DIOXIDE LEVEL 26 MEQ/L (21-32); CHLORIDE LEVEL 107 MEQ/L (98-107); CREATININE FOR GFR 1.01 MG/DL (0.70-1.30); GLOMERULAR FILTRATION RATE > 60.0 (>42); GLUCOSE, FASTING 178 MG/DL (70-100); MAGNESIUM LEVEL 1.6 MG/DL (1.8-2.4); POTASSIUM SERUM 4.5 MEQ/L (3.5-5.1); SODIUM LEVEL 137 MEQ/L (136-145)
[2021-12-18 06:52] LABS: PLATELET COUNT, AUTOMATED 90 10^3/uL (150-450)
[2021-12-18] MEDS: MAG SULF 1GM/100ML (MAG RUN) 1 GM in IV 1 EA IV SCH ×2 (07:51→10:27)
[2021-12-18 08:12] VITALS: BP 140/60
[2021-12-18] MEDS: CREON-24 CAPSULE PO SCH ×2 (09:29→18:24)
[2021-12-18] MEDS: MULTIVITAMINS/MINERALS THERAP 1 TAB PO SCH (09:30)
[2021-12-18] MEDS: PANTOPRAZOLE 40MG TAB (PROTONIX) PO SCH (09:31)
[2021-12-18] MEDS: HumaLOG INSULIN (NovoLOG) PER UNIT SC SCH ×4 (09:34→20:17)
[2021-12-18 13:38] VITALS: BP 149/70
[2021-12-18 13:58] LABS: APPEARANCE, URINE CLEAR (CLEAR); BACTERIA, URINE AUTO NEGATIVE (NEGATIVE); BILIRUBIN, URINE AUTO NEGATIVE (NEGATIVE); BLOOD, URINE BLOOD 1+ (NEGATIVE); COLOR, URINE YELLOW (YELLOW); GLUCOSE, URINE (UA) AUTO 3+ mg/dL (NEGATIVE); KETONE, URINE AUTO NEGATIVE (NEGATIVE); LEUKOCYTE ESTERASE, URINE AUTO NEGATIVE (NEGATIVE); MUCUS, URINE SMALL (NEGATIVE); NITRITE, URINE AUTO NEGATIVE (NEGATIVE); PROTEIN, URINE AUTO NEGATIVE (NEGATIVE); RBC, URINE AUTO 4 /HPF (0-3); SPECIFIC GRAVITY URINE AUTO 1.011 (1.002-1.035); SQUAMOUS EPITHELIAL CELL UR AU 0 /HPF (0-6); UROBILINOGEN, URINE AUTO 0.2 mg/dL (0.0-2.0); WBC, URINE AUTO 0 /HPF (0-3)
[2021-12-18 13:59] LABS: CREATININE,RANDOM URINE 14.9 MG/DL
[2021-12-18 16:28] VITALS: BP 148/68
[2021-12-18 20:00] VITALS: BP 145/70
[2021-12-19] VITALS: BP 147/71
[2021-12-19] MEDS: PENICILLIN V POTASSIUM 500 MG TAB PO SCH ×3 (00:34→12:03)
[2021-12-19 04:00] VITALS: BP 120/67
[2021-12-19 05:59] LABS: HEMATOCRIT 35.4 % (42.0-52.0); HEMOGLOBIN 11.9 g/dl (13.5-17.5); MEAN CORPUSCULAR HGB CONC 33.6 g/dl (32.0-36.5); MEAN CORPUSCULAR VOLUME 89.2 fl (80.0-96.0); RED BLOOD COUNT 3.97 10^6/uL (4.30-6.10); WHITE BLOOD COUNT 3.5 10^3/uL (4.0-10.0)
[2021-12-19 06:00] LABS: PLATELET COUNT, AUTOMATED 94 10^3/uL (150-450)
[2021-12-19 06:21] LABS: BLOOD UREA NITROGEN 14 MG/DL (7-18); CALCIUM LEVEL 8.7 MG/DL (8.8-10.2); CARBON DIOXIDE LEVEL 29 MEQ/L (21-32); CHLORIDE LEVEL 107 MEQ/L (98-107); CREATININE FOR GFR 0.92 MG/DL (0.70-1.30); GLOMERULAR FILTRATION RATE > 60.0 (>42); GLUCOSE, FASTING 126 MG/DL (70-100); MAGNESIUM LEVEL 1.6 MG/DL (1.8-2.4); POTASSIUM SERUM 4.2 MEQ/L (3.5-5.1); SODIUM LEVEL 140 MEQ/L (136-145)
[2021-12-19 08:00] VITALS: BP 143/69
[2021-12-19] MEDS ORDERED: MAG SULF 1GM/100ML (MAG RUN) 1 GM in IV 1 EA IV ONE ×2 (08:00→09:00)
[2021-12-19 08:39] VITALS: BP 120/67
[2021-12-19] MEDS: HEPARIN SOD (PORCINE) 5000UNITS/ML 1ML VIAL/SYRINGE SC SCH (08:39)
[2021-12-19] MEDS: MULTIVITAMINS/MINERALS THERAP 1 TAB PO SCH (08:39)
[2021-12-19] MEDS: LINEZOLID 600MG TABLET (ZYVOX) PO SCH (08:39)
[2021-12-19] MEDS: PANTOPRAZOLE 40MG TAB (PROTONIX) PO SCH (08:39)
[2021-12-19] MEDS: CREON-24 CAPSULE PO SCH (08:39)
[2021-12-19] MEDS: DOCUSATE SODIUM 100MG CAPSULE PO SCH (08:39)
[2021-12-19] MEDS: HumaLOG INSULIN (NovoLOG) PER UNIT SC SCH ×2 (08:40→12:04)
[2021-12-19] MEDS: LACTIC ACID 12% LOTION 225 GM BTL TOP SCH (09:22)
[2021-12-19] MEDS ORDERED: AMLO1TAB25 PO (10:11)
[2021-12-19] MEDS ORDERED: LINE1TAB6 PO (10:14)
[2021-12-19] MEDS ORDERED: CLIN-250 PO (11:27)
[2021-12-19 12:00] VITALS: BP 154/75
== END 2021-12-19 16:11 | disposition home or self-care (01) ==
LOC: M ED 14:14 → M ED INP 14:15 → M PCU 23:25
PROVIDERS: ADMIT Internal Medicine; ATTEND Internal Medicine
DX: I10 Essential (primary) hypertension (principal); E87.5 Hyperkalemia; E83.42 Hypomagnesemia; N17.9 Acute kidney failure, unspecified; I16.0 Hypertensive urgency; E78.5 Hyperlipidemia, unspecified; R93.422 Abnormal radiologic findings on diagnostic imaging of left kidney; K21.9 Gastro-esophageal reflux disease without esophagitis; J44.9 Chronic obstructive pulmonary disease, unspecified; I25.10 Atherosclerotic heart disease of native coronary artery without angina pectoris; Z95.1 Presence of aortocoronary bypass graft; K27.9 Peptic ulcer, site unspecified, unspecified as acute or chronic, without hemorrhage or perforation; E11.40 Type 2 diabetes mellitus with diabetic neuropathy, unspecified; L03.116 Cellulitis of left lower limb; E11.69 Type 2 diabetes mellitus with other specified complication; N40.0 Benign prostatic hyperplasia without lower urinary tract symptoms; I44.1 Atrioventricular block, second degree; Z79.899 Other long term (current) drug therapy; Z79.2 Long term (current) use of antibiotics; Z79.84 Long term (current) use of oral hypoglycemic drugs; Z79.4 Long term (current) use of insulin; Z86.718 Personal history of other venous thrombosis and embolism; Z87.891 Personal history of nicotine dependence
CPT/HCPCS: 36415; 71045; 76775; 80048; 80076; 81001; 82550; 82553; 82570; 83735; 84300; 84436; 84443; 84479; 84484; 85025; 85027; 85049; 85055; 87631; 93005; 93041; 93306; 96361; 96372; 96374; 97116; 97161; 99285; G0378; J0360; J1644; J1815; J3475

== ENCOUNTER → 2022-03-13 | Outpatient (CLI) | payer MEDICARE, BC ==
[~2022-03-13] MED LIST changes: +AMLO1TAB25 PO; +BACTDSTA PO; +LINE1TAB6 PO; +PENI500T PO; +TRES1INJ2 SC; +VITMTA PO
== END ==
LOC: M WUC 13:07
PROVIDERS: ATTEND Family Medicine
DX: J44.9 Chronic obstructive pulmonary disease, unspecified (principal)

== ENCOUNTER → 2022-04-14 | Outpatient (CLI) | payer MEDICARE, BC | LOC: M WUC 13:28 | PROVIDERS: ATTEND Physician Assistant Medical | DX: I70.0 Atherosclerosis of aorta (principal); R06.02 Shortness of breath ==

== ENCOUNTER → 2022-04-27 | Outpatient (CLI) | payer MEDICARE, BC ==
[~2022-04-27] MED LIST changes: +AMLO1TAB24; +FLUT1BLS8; +MAGN250T7 PO; +[UNRECOGNIZED DRUG - OTHER] PO
== END ==
LOC: M LABSMTC 11:26
PROVIDERS: ATTEND Anesthesiology
DX: Z01.818 Encounter for other preprocedural examination (principal); Z11.52 Encounter for screening for COVID-19

== ENCOUNTER 2022-04-29 10:59 | Day surgery (SDC) | payer MEDICARE, BC ==
[~2022-04-29] VITALS: Ht 182.9 cm; Wt 88.9 kg
[~2022-04-29 10:59] MED LIST changes: +ceFAZolin SOD 2 GM in IV 1 EA IV ONE
[2022-04-29] MEDS ORDERED: LR 1,000 ML IV SCH ×2 (12:05→16:25)
[2022-04-29] MEDS ORDERED: INSULIN LISPRO (NovoLOG) PER UNIT SC PRN (12:05)
[2022-04-29] MEDS ORDERED: MIDAZOLAM INJ 2MG/2ML VIAL (J2250 PER 1MG) As Ordered ONE (13:43)
[2022-04-29] MEDS ORDERED: LIDOCAINE 2% INJ 100 MG/5 ML SYRINGE As Ordered ONE (13:43)
[2022-04-29] MEDS ORDERED: propofoL 200 MG/20 ML VIAL As Ordered ONE (13:43)
[2022-04-29] MEDS ORDERED: MUPIROCIN 2% OINT 22 GM TUBE As Ordered ONE (13:47)
[2022-04-29] MEDS ORDERED: LIDOCAINE 1% MDV 50ML VIAL As Ordered ONE (13:47)
[2022-04-29] MEDS ORDERED: VANCOMYCIN 1000MG/20ML VIAL As Ordered ONE (13:48)
[2022-04-29] MEDS ORDERED: ISOVUE-300 61% 50ML VIAL As Ordered ONE (13:48)
[2022-04-29] MEDS ORDERED: MORPHINE 2 MG/ML 1ML VIAL IV PRN (16:25)
[2022-04-29] MEDS ORDERED: ONDANSETRON 4MG 2ML VIAL IV PRN (16:25)
[2022-04-29] MEDS ORDERED: fentaNYL 100 MCG/2 ML INJECTION IV PRN (16:25)
[2022-04-29] MEDS ORDERED: PERCOCET 5MG/325MG TAB PO PRN (16:25)
[2022-04-29] MEDS ORDERED: FUROSEMIDE 20MG/2ML VIAL (J1940) IV ONE (18:35)
[2022-04-29] MEDS ORDERED: amLODIPine 5 MG TAB PO ONE (18:35)
[2022-04-29 18:45] VITALS: BP 199/95
[2022-04-29 20:00] VITALS: BP 180/96
[2022-04-29] MEDS ORDERED: ACETAMINOPHEN TAB 650MG DOSE (2X325MG) PO PRN (20:00)
[2022-04-29] MEDS: ASCORBIC ACID 250 MG TAB PO SCH (20:36)
[2022-04-29] MEDS: MAGNESIUM OXIDE 400MG TAB (MAG-OX) PO SCH (20:36)
[2022-04-29] MEDS ORDERED: ATORVASTATIN 20 MG TAB PO SCH (21:00)
[2022-04-29] MEDS ORDERED: LEVEMIR (INSULIN DETEMIR) 1 UNITS/0.01ML SC SCH (21:00)
[2022-04-30] VITALS: BP 163/79
[2022-04-30 04:00] VITALS: BP 151/69
[2022-04-30 08:00] VITALS: BP 176/81
[2022-04-30] MEDS ORDERED: CREON-12 CAPSULE PO SCH (08:00)
[2022-04-30] MEDS ORDERED: metFORMIN (GLUCOPHAGE) 500MG TAB PO SCH (08:00)
[2022-04-30] MEDS: ASCORBIC ACID 250 MG TAB PO SCH (08:14)
[2022-04-30] MEDS: MAGNESIUM OXIDE 400MG TAB (MAG-OX) PO SCH (08:14)
[2022-04-30] MEDS ORDERED: MULTIVITAMINS/MINERALS THERAP 1 TAB PO SCH (09:00)
[2022-04-30] MEDS ORDERED: TAMSULOSIN 0.4 MG CAP PO SCH (09:00)
[2022-04-30] MEDS ORDERED: PANTOPRAZOLE 40MG TAB (PROTONIX) PO SCH (09:00)
[2022-04-30] MEDS ORDERED: amLODIPine 5 MG TAB PO STA (11:15)
[2022-04-30 11:24] VITALS: BP 182/98
[2022-04-30 12:00] VITALS: BP 168/72
[2022-04-30] MEDS ORDERED: amLODIPine 5 MG TAB PO SCH (21:00)
== END 2022-04-30 14:03 | disposition home or self-care (01) ==
LOC: M SDC 10:59 → M PCU 18:23 → M SDC 04-30 14:03
PROVIDERS: ATTEND Internal Medicine Cardiovascular Disease
DX: R55 Syncope and collapse (principal); I45.10 Unspecified right bundle-branch block; I44.1 Atrioventricular block, second degree; I10 Essential (primary) hypertension; E78.5 Hyperlipidemia, unspecified; E11.9 Type 2 diabetes mellitus without complications; K21.9 Gastro-esophageal reflux disease without esophagitis; J44.9 Chronic obstructive pulmonary disease, unspecified; N40.0 Benign prostatic hyperplasia without lower urinary tract symptoms; Z85.46 Personal history of malignant neoplasm of prostate; Z92.3 Personal history of irradiation; Z79.899 Other long term (current) drug therapy; Z79.51 Long term (current) use of inhaled steroids; Z79.84 Long term (current) use of oral hypoglycemic drugs; Z79.4 Long term (current) use of insulin
CPT/HCPCS: 33208; 71045; 71046; 76000; 93005; 96374; C1785; C1898; J0690; J1815; J1940; J2250; J3370; Q9967

== ENCOUNTER → 2022-06-12 | Outpatient (REF) | payer MEDICARE, BC ==
[~2022-06-12] MED LIST changes: -ceFAZolin SOD 2 GM in IV 1 EA IV ONE
[2022-06-12 18:48] LABS: APPEARANCE, URINE MANUAL CLEAR (CLEAR); COLOR, URINE MANUAL YELLOW (YELLOW)
[2022-06-12 18:49] LABS: BILIRUBIN, URINE MANUAL NEGATIVE (NEGATIVE); BLOOD URINE MANUAL POSITIVE (NEGATIVE); GLUCOSE, URINE (UA) MANUAL NEGATIVE (NEGATIVE); KETONE, URINE MANUAL NEGATIVE (NEGATIVE); LEUKOCYTE ESTERASE, URINE MAN NEGATIVE (NEGATIVE); NITRITE, URINE MANUAL NEGATIVE (NEGATIVE); PROTEIN, URINE MANUAL TRACE mg/dL (NEGATIVE); UROBILINOGEN, URINE MANUAL NORMAL (NORMAL)
[2022-06-12 19:11] LABS: BACTERIA, URINE NONE SEEN; CALCIUM OXALATE CRYSTALS,URINE LARGE AMOUNT /hpf; HYALINE CAST, URINE NONE SEEN /lpf (0-1); SQUAMOUS EPITHELIAL CELL URINE NONE SEEN /hpf (SMALL AMT); WBC, URINE 0-1 /hpf (0-3)
== END ==
LOC: M LAB REF 16:28
PROVIDERS: ATTEND Family Medicine
DX: Z01.818 Encounter for other preprocedural examination (principal)

== ENCOUNTER 2022-06-26 13:13 | Inpatient (IN) | payer MEDICARE, BC ==
[~2022-06-26] VITALS: Ht 182.9 cm; Wt 101.6 kg
[~2022-06-26 13:13] MED LIST changes: -AMLO1TAB24; +AMLO1TAB24 PO; -FLUT1BLS8; +FLUT1BLS8 PO
[2022-06-26 13:56] LABS: BASO % 0.5 % (0.0-1.0); EOS % 0.2 % (0.0-3.0); HEMATOCRIT 39.1 % (42.0-52.0); HEMOGLOBIN 12.9 g/dl (13.5-17.5); LYMPH # 0.5 10^3/uL (1.5-5.0); LYMPH % 7.2 % (24.0-44.0); MEAN CORPUSCULAR HEMOGLOBIN 29.3 pg (27.0-33.0); MEAN CORPUSCULAR VOLUME 88.7 fl (80.0-96.0); MONO # 0.3 10^3/uL (0.0-0.8); MONO % 4.8 % (2.0-8.0); NEUTROPHILS # 5.5 10^3/uL (1.5-8.5); NEUTROPHILS % 86.8 % (36.0-66.0); PLATELET COUNT, AUTOMATED 141 10^3/uL (150-450); RED BLOOD COUNT 4.41 10^6/uL (4.30-6.10); WHITE BLOOD COUNT 6.3 10^3/uL (4.0-10.0)
[2022-06-26 14:29] LABS: RSV AMPLIFICATION NEGATIVE (NEGATIVE)
[2022-06-26 14:37] LABS: CK-MB VALUE MASS 10.8 NG/ML (<3.6); MB/CK RELATIVE INDEX 4.29 (< OR =4)
[2022-06-26 14:50] LABS: ALBUMIN 3.5 GM/DL (3.2-5.2); ALT/SGPT 44 U/L (12-78); BILIRUBIN,DIRECT 0.7 MG/DL (0.0-0.2); BILIRUBIN,TOTAL 1.6 MG/DL (0.2-1.0); BLOOD UREA NITROGEN 19 MG/DL (7-18); CALCIUM LEVEL 9.1 MG/DL (8.8-10.2); CARBON DIOXIDE LEVEL 27 MEQ/L (21-32); CHLORIDE LEVEL 100 MEQ/L (98-107); CREATININE FOR GFR 0.63 MG/DL (0.70-1.30); GLOMERULAR FILTRATION RATE > 60.0 (>42); GLUCOSE, FASTING 128 MG/DL (70-100); POTASSIUM SERUM 4.4 MEQ/L (3.5-5.1); SODIUM LEVEL 133 MEQ/L (136-145); TOTAL PROTEIN 7.4 GM/DL (6.4-8.2)
[2022-06-26 16:23] LABS: NT-PRO BNP 407 PG/ML (<450)
[2022-06-26 16:47] LABS: CK-MB VALUE MASS 10.6 NG/ML (<3.6); MB/CK RELATIVE INDEX 4.45 (< OR =4)
[2022-06-26] MEDS ORDERED: FUROSEMIDE 40MG/4ML VIAL (J1940) IV ONE (18:10)
[2022-06-26] MEDS ORDERED: ACETAMINOPHEN TAB 650MG DOSE (2X325MG) PO PRN (19:25)
[2022-06-26] MEDS ORDERED: GLUCAGON INJ 1MG VIAL SC PRN (20:20)
[2022-06-26] MEDS ORDERED: GLUCOSE 4GM CHEW TABLET PO PRN (20:20)
[2022-06-26] MEDS ORDERED: DEXTROSE 50% 50 ML SYRINGE IV PRN (20:20)
[2022-06-26] MEDS: DOCUSATE SODIUM 100MG CAPSULE PO SCH (21:00)
[2022-06-26] MEDS: INSULIN LISPRO (NovoLOG) PER UNIT SC SCH (21:00)
[2022-06-26] MEDS ORDERED: amLODIPine 5 MG TAB PO ONE (21:55)
[2022-06-26] MEDS ORDERED: ACET300T48 PO (23:16)
[2022-06-26] MEDS ORDERED: PHEN-501 PO (23:16)
[2022-06-26] MEDS ORDERED: DOCU100C16 PO (23:16)
[2022-06-26] MEDS ORDERED: PANT-23 PO (23:16)
[2022-06-26] MEDS ORDERED: HOME MED LIST COMPLETE! XX SCH (23:20)
[2022-06-27] VITALS: BP 168/94
[2022-06-27 00:47] LABS: INR 1.13; PROTHROMBIN TIME 14.9 SECONDS (12.7-14.5)
[2022-06-27 00:48] LABS: PARTIAL THROMBOPLASTIN TIME 38.3 SECONDS (25.9-37.0)
[2022-06-27 01:15] LABS: FREE T4 1.29 NG/DL (0.76-1.46)
[2022-06-27] MEDS ORDERED: ACETAMINOPH W/CODEINE #3 TAB UD PO PRN (01:20)
[2022-06-27] MEDS ORDERED: ALBUTEROL 90 MCG/ACT 8GM HFA INHALER INH PRN (01:20)
[2022-06-27] MEDS ORDERED: PHENAZOPYRIDINE 100 MG TAB PO PRN (01:20)
[2022-06-27 01:25] LABS: APPEARANCE, URINE MANUAL CLEAR (CLEAR); COLOR, URINE MANUAL YELLOW (YELLOW); GLUCOSE, URINE (UA) MANUAL NEGATIVE (NEGATIVE); KETONE, URINE MANUAL 1+ mg/dL (NEGATIVE); PROTEIN, URINE MANUAL TRACE mg/dL (NEGATIVE); UROBILINOGEN, URINE MANUAL NORMAL (NORMAL)
[2022-06-27 01:26] LABS: BILIRUBIN, URINE MANUAL NEGATIVE (NEGATIVE); BLOOD URINE MANUAL POSITIVE (NEGATIVE); LEUKOCYTE ESTERASE, URINE MAN NEGATIVE (NEGATIVE); NITRITE, URINE MANUAL POSITIVE (NEGATIVE)
[2022-06-27 01:36] LABS: WBC, URINE 0-1 /hpf (0-3)
[2022-06-27 01:37] LABS: RBC, URINE 15-20 /hpf (0-3)
[2022-06-27 01:38] LABS: BACTERIA, URINE SMALL AMOUNT; HYALINE CAST, URINE NONE SEEN /lpf (0-1); MUCUS, URINE SMALL AMOUNT (NEGATIVE); SQUAMOUS EPITHELIAL CELL URINE NONE SEEN /hpf (SMALL AMT)
[2022-06-27] MEDS: cefTRIAXone SOD 1 GM in D5W MINI-BAG PLUS 50 ML IV SCH (02:35)
[2022-06-27 04:00] VITALS: BP 151/84
[2022-06-27] MEDS: LACTULOSE 20 GM/30 ML SYRUP UD PO SCH ×3 (05:38→20:41)
[2022-06-27 06:13] LABS: HEMATOCRIT 36.7 % (42.0-52.0); HEMOGLOBIN 12.3 g/dl (13.5-17.5); MEAN CORPUSCULAR HEMOGLOBIN 29.5 pg (27.0-33.0); MEAN CORPUSCULAR HGB CONC 33.5 g/dl (32.0-36.5); PLATELET COUNT, AUTOMATED 138 10^3/uL (150-450); RED BLOOD COUNT 4.17 10^6/uL (4.30-6.10); WHITE BLOOD COUNT 4.4 10^3/uL (4.0-10.0)
[2022-06-27 06:31] LABS: ALBUMIN 3.2 GM/DL (3.2-5.2); ALT/SGPT 35 U/L (12-78); BILIRUBIN,TOTAL 1.3 MG/DL (0.2-1.0); BLOOD UREA NITROGEN 17 MG/DL (7-18); CALCIUM LEVEL 9.1 MG/DL (8.8-10.2); CARBON DIOXIDE LEVEL 31 MEQ/L (21-32); CHLORIDE LEVEL 103 MEQ/L (98-107); CREATININE FOR GFR 0.72 MG/DL (0.70-1.30); GLOMERULAR FILTRATION RATE > 60.0 (>42); GLUCOSE, FASTING 142 MG/DL (70-100); MAGNESIUM LEVEL 1.6 MG/DL (1.8-2.4); POTASSIUM SERUM 3.7 MEQ/L (3.5-5.1); SODIUM LEVEL 139 MEQ/L (136-145); TOTAL PROTEIN 6.8 GM/DL (6.4-8.2)
[2022-06-27] MEDS: TIOTROPIUM INHALER/CAPSULE (SPIRIVA) INH SCH (07:08)
[2022-06-27] MEDS: ADVAIR HFA 115/21MCG INHALER INH SCH ×2 (07:09→19:51)
[2022-06-27] MEDS: INSULIN LISPRO (NovoLOG) PER UNIT SC SCH ×4 (07:30→20:54)
[2022-06-27] MEDS: CREON-12 CAPSULE PO SCH ×2 (08:00→17:13)
[2022-06-27] MEDS: DOCUSATE SODIUM 100MG CAPSULE PO SCH ×2 (09:57→20:52)
[2022-06-27] MEDS: FUROSEMIDE 40MG/4ML VIAL (J1940) IV SCH ×2 (09:57→17:13)
[2022-06-27] MEDS: ENOXAPARIN 40MG/0.4ML SYRINGE (J1650 PER 10MG) SC SCH (09:58)
[2022-06-27] MEDS: rifAXIMin 550 MG TAB (XIFAXAN) PO SCH ×2 (10:02→20:52)
[2022-06-27 12:00] VITALS: BP 164/80
[2022-06-27 20:00] VITALS: BP 136/74
[2022-06-27] MEDS: amLODIPine 5 MG TAB PO SCH (20:53)
[2022-06-27] MEDS: ATORVASTATIN 20 MG TAB PO SCH (20:53)
[2022-06-27] MEDS: LEVEMIR (INSULIN DETEMIR) 1 UNITS/0.01ML SC SCH (20:54)
[2022-06-27] MEDS ORDERED: TAMSULOSIN 0.4 MG CAP PO SCH (21:00)
[2022-06-28] VITALS: BP 158/60
[2022-06-28] MEDS ORDERED: TAMSULOSIN 0.4 MG CAP PO ONE (01:00)
[2022-06-28] MEDS: cefTRIAXone SOD 1 GM in D5W MINI-BAG PLUS 50 ML IV SCH (01:43)
[2022-06-28] MEDS: RAMELTEON 8 MG TAB (ROZEREM) PO PRN ×2 (02:01→22:32)
[2022-06-28 04:00] VITALS: BP 122/81
[2022-06-28] MEDS: LACTULOSE 20 GM/30 ML SYRUP UD PO SCH ×3 (04:54→21:15)
[2022-06-28 05:42] LABS: HEMATOCRIT 38.6 % (42.0-52.0); HEMOGLOBIN 12.6 g/dl (13.5-17.5); MEAN CORPUSCULAR HEMOGLOBIN 29.2 pg (27.0-33.0); MEAN CORPUSCULAR HGB CONC 32.6 g/dl (32.0-36.5); MEAN CORPUSCULAR VOLUME 89.6 fl (80.0-96.0); PLATELET COUNT, AUTOMATED 125 10^3/uL (150-450); RED BLOOD COUNT 4.31 10^6/uL (4.30-6.10); WHITE BLOOD COUNT 4.5 10^3/uL (4.0-10.0)
[2022-06-28 06:24] LABS: ALBUMIN 3.1 GM/DL (3.2-5.2); ALT/SGPT 33 U/L (12-78); BILIRUBIN,TOTAL 0.8 MG/DL (0.2-1.0); BLOOD UREA NITROGEN 15 MG/DL (7-18); CALCIUM LEVEL 8.7 MG/DL (8.8-10.2); CARBON DIOXIDE LEVEL 31 MEQ/L (21-32); CHLORIDE LEVEL 103 MEQ/L (98-107); CHOLESTEROL LEVEL 95 MG/DL (<200); CREATININE FOR GFR 0.72 MG/DL (0.70-1.30); GLOMERULAR FILTRATION RATE > 60.0 (>42); GLUCOSE, FASTING 163 MG/DL (70-100); HDL CHOLESTEROL 50 MG/DL (>40); LDL CHOLESTEROL 34 MG/DL (<100); MAGNESIUM LEVEL 1.7 MG/DL (1.8-2.4); NON-HDL-C 45 MG/DL; SODIUM LEVEL 140 MEQ/L (136-145); TOTAL PROTEIN 6.5 GM/DL (6.4-8.2); TRIGLYCERIDES LEVEL 55 MG/DL (<150)
[2022-06-28] MEDS: TIOTROPIUM INHALER/CAPSULE (SPIRIVA) INH SCH (07:03)
[2022-06-28] MEDS: ADVAIR HFA 115/21MCG INHALER INH SCH ×2 (07:03→19:54)
[2022-06-28 08:00] VITALS: BP 128/73
[2022-06-28] MEDS ORDERED: POTASSIUM CHLORIDE 10MEQ SR TABLET PO ONE (09:00)
[2022-06-28] MEDS: CREON-12 CAPSULE PO SCH ×2 (09:30→17:04)
[2022-06-28] MEDS: rifAXIMin 550 MG TAB (XIFAXAN) PO SCH ×2 (09:30→21:15)
[2022-06-28] MEDS: ENOXAPARIN 40MG/0.4ML SYRINGE (J1650 PER 10MG) SC SCH (09:33)
[2022-06-28] MEDS: FUROSEMIDE 40MG/4ML VIAL (J1940) IV SCH ×2 (09:33→17:04)
[2022-06-28] MEDS: DOCUSATE SODIUM 100MG CAPSULE PO SCH ×2 (09:34→21:15)
[2022-06-28] MEDS: INSULIN LISPRO (NovoLOG) PER UNIT SC SCH ×4 (09:34→21:00)
[2022-06-28 12:00] VITALS: BP 136/74
[2022-06-28 16:00] VITALS: BP 132/77
[2022-06-28 20:00] VITALS: BP 155/70
[2022-06-28] MEDS ORDERED: TAMSULOSIN 0.4 MG CAP PO SCH (21:00)
[2022-06-28] MEDS: LEVEMIR (INSULIN DETEMIR) 1 UNITS/0.01ML SC SCH (21:14)
[2022-06-28] MEDS: amLODIPine 5 MG TAB PO SCH (21:15)
[2022-06-28] MEDS: ATORVASTATIN 20 MG TAB PO SCH (21:15)
[2022-06-29] MEDS: cefTRIAXone SOD 1 GM in D5W MINI-BAG PLUS 50 ML IV SCH (01:03)
[2022-06-29 04:00] VITALS: BP 128/70
[2022-06-29 04:03] LABS: HEMATOCRIT 36.9 % (42.0-52.0); HEMOGLOBIN 12.2 g/dl (13.5-17.5); MEAN CORPUSCULAR HEMOGLOBIN 29.5 pg (27.0-33.0); MEAN CORPUSCULAR HGB CONC 33.1 g/dl (32.0-36.5); MEAN CORPUSCULAR VOLUME 89.1 fl (80.0-96.0); PLATELET COUNT, AUTOMATED 142 10^3/uL (150-450); RED BLOOD COUNT 4.14 10^6/uL (4.30-6.10); WHITE BLOOD COUNT 4.5 10^3/uL (4.0-10.0)
[2022-06-29 04:38] LABS: ALT/SGPT 32 U/L (12-78); BILIRUBIN,TOTAL 0.7 MG/DL (0.2-1.0); BLOOD UREA NITROGEN 18 MG/DL (7-18); CALCIUM LEVEL 8.5 MG/DL (8.8-10.2); CARBON DIOXIDE LEVEL 32 MEQ/L (21-32); CHLORIDE LEVEL 101 MEQ/L (98-107); CREATININE FOR GFR 0.86 MG/DL (0.70-1.30); GLOMERULAR FILTRATION RATE > 60.0 (>42); GLUCOSE, FASTING 338 MG/DL (70-100); MAGNESIUM LEVEL 1.8 MG/DL (1.8-2.4); POTASSIUM SERUM 3.3 MEQ/L (3.5-5.1); SODIUM LEVEL 138 MEQ/L (136-145); TOTAL PROTEIN 6.4 GM/DL (6.4-8.2)
[2022-06-29] MEDS: LACTULOSE 20 GM/30 ML SYRUP UD PO SCH ×4 (06:19→23:29)
[2022-06-29] MEDS: ADVAIR HFA 115/21MCG INHALER INH SCH ×2 (07:56→19:17)
[2022-06-29] MEDS: TIOTROPIUM INHALER/CAPSULE (SPIRIVA) INH SCH (07:56)
[2022-06-29 08:00] VITALS: BP 127/68
[2022-06-29] MEDS ORDERED: POTASSIUM CHLORIDE 10MEQ SR TABLET PO ONE (08:00)
[2022-06-29] MEDS: ENOXAPARIN 40MG/0.4ML SYRINGE (J1650 PER 10MG) SC SCH (09:00)
[2022-06-29] MEDS: DOCUSATE SODIUM 100MG CAPSULE PO SCH ×2 (09:24→20:25)
[2022-06-29] MEDS: CREON-12 CAPSULE PO SCH ×2 (09:25→17:57)
[2022-06-29] MEDS: rifAXIMin 550 MG TAB (XIFAXAN) PO SCH ×2 (09:25→20:27)
[2022-06-29] MEDS: INSULIN LISPRO (NovoLOG) PER UNIT SC SCH ×4 (09:26→20:25)
[2022-06-29 10:39] LABS: HEPATITIS B SURFACE ANTIGEN NEGATIVE (NEGATIVE)
[2022-06-29 11:07] LABS: HEPATITIS B CORE ANTIBODY IGM NEGATIVE (NEGATIVE); HEPATITIS C VIRUS ABY INDEX < 0.0 INDEX (<0.8)
[2022-06-29 12:00] VITALS: BP 138/77
[2022-06-29 15:22] VITALS: BP 131/75
[2022-06-29 20:00] VITALS: BP 161/82
[2022-06-29] MEDS: LEVEMIR (INSULIN DETEMIR) 1 UNITS/0.01ML SC SCH (20:25)
[2022-06-29] MEDS: ATORVASTATIN 20 MG TAB PO SCH (20:26)
[2022-06-29] MEDS: TAMSULOSIN 0.4 MG CAP PO SCH (20:26)
[2022-06-29] MEDS: amLODIPine 5 MG TAB PO SCH (20:27)
[2022-06-29] MEDS ORDERED: LOSARTAN 25 MG TAB PO SCH (21:00)
[2022-06-29] MEDS: RAMELTEON 8 MG TAB (ROZEREM) PO PRN (22:14)
[2022-06-30] MEDS: cefTRIAXone SOD 1 GM in D5W MINI-BAG PLUS 50 ML IV SCH (01:38)
[2022-06-30 04:00] VITALS: BP 124/68
[2022-06-30] MEDS: LACTULOSE 20 GM/30 ML SYRUP UD PO SCH ×3 (05:14→18:07)
[2022-06-30 05:30] LABS: HEMATOCRIT 37.2 % (42.0-52.0); HEMOGLOBIN 12.1 g/dl (13.5-17.5); MEAN CORPUSCULAR HEMOGLOBIN 29.4 pg (27.0-33.0); MEAN CORPUSCULAR HGB CONC 32.5 g/dl (32.0-36.5); MEAN CORPUSCULAR VOLUME 90.3 fl (80.0-96.0); PLATELET COUNT, AUTOMATED 133 10^3/uL (150-450); RED BLOOD COUNT 4.12 10^6/uL (4.30-6.10); WHITE BLOOD COUNT 5.6 10^3/uL (4.0-10.0)
[2022-06-30 06:03] LABS: ALBUMIN 2.9 GM/DL (3.2-5.2); ALT/SGPT 30 U/L (12-78); BILIRUBIN,TOTAL 0.7 MG/DL (0.2-1.0); BLOOD UREA NITROGEN 16 MG/DL (7-18); CALCIUM LEVEL 8.6 MG/DL (8.8-10.2); CARBON DIOXIDE LEVEL 30 MEQ/L (21-32); CHLORIDE LEVEL 104 MEQ/L (98-107); CREATININE FOR GFR 0.71 MG/DL (0.70-1.30); GLOMERULAR FILTRATION RATE > 60.0 (>42); GLUCOSE, FASTING 192 MG/DL (70-100); MAGNESIUM LEVEL 1.8 MG/DL (1.8-2.4); POTASSIUM SERUM 3.5 MEQ/L (3.5-5.1); SODIUM LEVEL 138 MEQ/L (136-145); TOTAL PROTEIN 6.4 GM/DL (6.4-8.2)
[2022-06-30] MEDS: TIOTROPIUM INHALER/CAPSULE (SPIRIVA) INH SCH (07:23)
[2022-06-30] MEDS: ADVAIR HFA 115/21MCG INHALER INH SCH ×2 (07:23→19:56)
[2022-06-30 07:34] VITALS: BP 120/67
[2022-06-30] MEDS: ENOXAPARIN 40MG/0.4ML SYRINGE (J1650 PER 10MG) SC SCH (09:00)
[2022-06-30] MEDS: INSULIN LISPRO (NovoLOG) PER UNIT SC SCH ×4 (09:11→20:23)
[2022-06-30] MEDS: DOCUSATE SODIUM 100MG CAPSULE PO SCH ×2 (09:11→20:21)
[2022-06-30] MEDS: rifAXIMin 550 MG TAB (XIFAXAN) PO SCH ×2 (09:12→20:21)
[2022-06-30] MEDS: CREON-12 CAPSULE PO SCH ×2 (09:12→18:07)
[2022-06-30 11:56] VITALS: BP 138/76
[2022-06-30 16:00] VITALS: BP 135/72
[2022-06-30 18:50] VITALS: BP 146/88
[2022-06-30] MEDS: FUROSEMIDE 20 MG TAB PO SCH (20:20)
[2022-06-30] MEDS: ATORVASTATIN 20 MG TAB PO SCH (20:21)
[2022-06-30] MEDS: TAMSULOSIN 0.4 MG CAP PO SCH (20:21)
[2022-06-30] MEDS: LOSARTAN 50MG TABLET PO SCH (20:22)
[2022-06-30] MEDS: amLODIPine 5 MG TAB PO SCH (20:23)
[2022-06-30] MEDS: LEVEMIR (INSULIN DETEMIR) 1 UNITS/0.01ML SC SCH (20:24)
[2022-06-30] MEDS: RAMELTEON 8 MG TAB (ROZEREM) PO PRN (20:29)
[2022-06-30 21:31] VITALS: BP 139/78
[2022-07-01] MEDS: LACTULOSE 20 GM/30 ML SYRUP UD PO SCH ×4 (01:17→17:43)
[2022-07-01] MEDS: cefTRIAXone SOD 1 GM in D5W MINI-BAG PLUS 50 ML IV SCH (01:17)
[2022-07-01 06:00] VITALS: BP 126/73
[2022-07-01 06:07] LABS: HEMATOCRIT 37.6 % (42.0-52.0); HEMOGLOBIN 12.1 g/dl (13.5-17.5); MEAN CORPUSCULAR HEMOGLOBIN 29.4 pg (27.0-33.0); MEAN CORPUSCULAR HGB CONC 32.2 g/dl (32.0-36.5); MEAN CORPUSCULAR VOLUME 91.3 fl (80.0-96.0); PLATELET COUNT, AUTOMATED 145 10^3/uL (150-450); RED BLOOD COUNT 4.12 10^6/uL (4.30-6.10); WHITE BLOOD COUNT 5.3 10^3/uL (4.0-10.0)
[2022-07-01 06:42] LABS: ALBUMIN 2.9 GM/DL (3.2-5.2); ALT/SGPT 32 U/L (12-78); BILIRUBIN,TOTAL 0.9 MG/DL (0.2-1.0); BLOOD UREA NITROGEN 13 MG/DL (7-18); CALCIUM LEVEL 8.6 MG/DL (8.8-10.2); CARBON DIOXIDE LEVEL 31 MEQ/L (21-32); CHLORIDE LEVEL 104 MEQ/L (98-107); CREATININE FOR GFR 0.66 MG/DL (0.70-1.30); GLOMERULAR FILTRATION RATE > 60.0 (>42); GLUCOSE, FASTING 123 MG/DL (70-100); MAGNESIUM LEVEL 1.8 MG/DL (1.8-2.4); POTASSIUM SERUM 3.6 MEQ/L (3.5-5.1); SODIUM LEVEL 139 MEQ/L (136-145); TOTAL PROTEIN 6.2 GM/DL (6.4-8.2)
[2022-07-01] MEDS: TIOTROPIUM INHALER/CAPSULE (SPIRIVA) INH SCH (07:47)
[2022-07-01] MEDS: ADVAIR HFA 115/21MCG INHALER INH SCH ×2 (07:47→19:21)
[2022-07-01] MEDS: ENOXAPARIN 40MG/0.4ML SYRINGE (J1650 PER 10MG) SC SCH (09:00)
[2022-07-01] MEDS: CREON-12 CAPSULE PO SCH ×2 (09:09→17:43)
[2022-07-01] MEDS: PROPRANOLOL 60 MG LA CAP PO SCH (09:09)
[2022-07-01] MEDS: DOCUSATE SODIUM 100MG CAPSULE PO SCH ×2 (09:09→21:33)
[2022-07-01] MEDS: rifAXIMin 550 MG TAB (XIFAXAN) PO SCH ×2 (09:09→21:33)
[2022-07-01] MEDS: FUROSEMIDE 20 MG TAB PO SCH ×2 (09:10→17:43)
[2022-07-01] MEDS: INSULIN LISPRO (NovoLOG) PER UNIT SC SCH ×5 (09:10→21:00)
[2022-07-01] MEDS: ANUSOL HC CREAM 30GM TOP SCH ×2 (12:28→21:00)
[2022-07-01 14:00] VITALS: BP 119/76
[2022-07-01 21:17] VITALS: BP 131/84
[2022-07-01] MEDS: LOSARTAN 50MG TABLET PO SCH (21:32)
[2022-07-01] MEDS: RAMELTEON 8 MG TAB (ROZEREM) PO PRN (21:32)
[2022-07-01] MEDS: ATORVASTATIN 20 MG TAB PO SCH (21:33)
[2022-07-01] MEDS: TAMSULOSIN 0.4 MG CAP PO SCH (21:33)
[2022-07-01] MEDS: amLODIPine 5 MG TAB PO SCH (21:33)
[2022-07-01] MEDS: LEVEMIR (INSULIN DETEMIR) 1 UNITS/0.01ML SC SCH (21:33)
[2022-07-02] MEDS: LACTULOSE 20 GM/30 ML SYRUP UD PO SCH ×2 (00:14→05:11)
[2022-07-02] MEDS: cefTRIAXone SOD 1 GM in D5W MINI-BAG PLUS 50 ML IV SCH (00:15)
[2022-07-02 05:11] VITALS: BP 122/76
[2022-07-02 06:47] LABS: HEMATOCRIT 41.1 % (42.0-52.0); HEMOGLOBIN 13.1 g/dl (13.5-17.5); MEAN CORPUSCULAR HGB CONC 31.9 g/dl (32.0-36.5); MEAN CORPUSCULAR VOLUME 90.9 fl (80.0-96.0); PLATELET COUNT, AUTOMATED 153 10^3/uL (150-450); RED BLOOD COUNT 4.52 10^6/uL (4.30-6.10); WHITE BLOOD COUNT 5.9 10^3/uL (4.0-10.0)
[2022-07-02] MEDS: ADVAIR HFA 115/21MCG INHALER INH SCH (07:14)
[2022-07-02] MEDS: TIOTROPIUM INHALER/CAPSULE (SPIRIVA) INH SCH (07:14)
[2022-07-02 07:31] LABS: ALT/SGPT 41 U/L (12-78); BILIRUBIN,TOTAL 0.8 MG/DL (0.2-1.0); BLOOD UREA NITROGEN 14 MG/DL (7-18); CARBON DIOXIDE LEVEL 34 MEQ/L (21-32); CHLORIDE LEVEL 101 MEQ/L (98-107); CREATININE FOR GFR 0.83 MG/DL (0.70-1.30); GLOMERULAR FILTRATION RATE > 60.0 (>42); GLUCOSE, FASTING 130 MG/DL (70-100); MAGNESIUM LEVEL 1.8 MG/DL (1.8-2.4); POTASSIUM SERUM 4.4 MEQ/L (3.5-5.1); SODIUM LEVEL 136 MEQ/L (136-145); TOTAL PROTEIN 6.6 GM/DL (6.4-8.2)
[2022-07-02] MEDS: FUROSEMIDE 20 MG TAB PO SCH (08:53)
[2022-07-02] MEDS: DOCUSATE SODIUM 100MG CAPSULE PO SCH (08:53)
[2022-07-02 08:54] VITALS: BP 103/64
[2022-07-02] MEDS: CREON-12 CAPSULE PO SCH (08:54)
[2022-07-02] MEDS: PROPRANOLOL 60 MG LA CAP PO SCH (08:54)
[2022-07-02] MEDS: rifAXIMin 550 MG TAB (XIFAXAN) PO SCH (08:54)
[2022-07-02] MEDS: ANUSOL HC CREAM 30GM TOP SCH (08:55)
[2022-07-02] MEDS: INSULIN LISPRO (NovoLOG) PER UNIT SC SCH (08:55)
[2022-07-02] MEDS: ENOXAPARIN 40MG/0.4ML SYRINGE (J1650 PER 10MG) SC SCH (08:55)
[2022-07-02] MEDS ORDERED: XIFA550T PO (10:05)
[2022-07-02] MEDS ORDERED: LACT20EL PO (10:05)
[2022-07-02] MEDS ORDERED: FURO20TA2 PO (10:05)
[2022-07-02] MEDS ORDERED: INDE60CA4 PO (10:05)
[2022-07-02] MEDS ORDERED: COZA50TA PO (10:05)
== END 2022-07-02 12:17 | disposition home or self-care (01) | DRG 432 ==
LOC: M ED 13:13 → M ED INP 19:25 → ENRESERV 22:18 → M PCU 23:43 → M MSPAV 06-30 18:45
PROVIDERS: ADMIT Family Medicine; ATTEND Internal Medicine Nephrology
PROC: B246ZZZ Ultrasonography of Right and Left Heart (ICD-10-PCS; principal; 2022-06-27)
DX: K74.60 Unspecified cirrhosis of liver (principal); I50.43 Acute on chronic combined systolic (congestive) and diastolic (congestive) heart failure; K72.00 Acute and subacute hepatic failure without coma; G93.40 Encephalopathy, unspecified; E87.1 Hypo-osmolality and hyponatremia; I11.0 Hypertensive heart disease with heart failure; E78.5 Hyperlipidemia, unspecified; K21.9 Gastro-esophageal reflux disease without esophagitis; J44.9 Chronic obstructive pulmonary disease, unspecified; I25.10 Atherosclerotic heart disease of native coronary artery without angina pectoris; Z95.5 Presence of coronary angioplasty implant and graft; N40.1 Benign prostatic hyperplasia with lower urinary tract symptoms; I34.0 Nonrheumatic mitral (valve) insufficiency; I27.20 Pulmonary hypertension, unspecified; Z86.718 Personal history of other venous thrombosis and embolism; Z95.0 Presence of cardiac pacemaker; Z90.49 Acquired absence of other specified parts of digestive tract; Z87.891 Personal history of nicotine dependence; R74.01 Elevation of levels of liver transaminase levels; Z79.4 Long term (current) use of insulin; Z79.899 Other long term (current) drug therapy; K44.9 Diaphragmatic hernia without obstruction or gangrene; I44.1 Atrioventricular block, second degree; K27.9 Peptic ulcer, site unspecified, unspecified as acute or chronic, without hemorrhage or perforation; D69.6 Thrombocytopenia, unspecified; Z95.1 Presence of aortocoronary bypass graft; E11.51 Type 2 diabetes mellitus with diabetic peripheral angiopathy without gangrene; Z20.822 Contact with and (suspected) exposure to COVID-19

== ENCOUNTER → 2022-07-07 | Outpatient (REF) | payer MEDICARE, BC ==
[~2022-07-07] MED LIST changes: +ACET300T48 PO; +COZA50TA PO; +DOCU100C16 PO; +FURO20TA2 PO; +INDE60CA4 PO; +LACT20EL PO; +PANT-23 PO; +PHEN-501 PO; +XIFA550T PO
== END ==
LOC: M LAB REF 16:04
PROVIDERS: ATTEND Family Medicine
DX: R74.01 Elevation of levels of liver transaminase levels (principal)

== ENCOUNTER → 2022-09-15 | Outpatient (CLI) | payer MEDICARE, BC | LOC: M WUC 11:29 | PROVIDERS: ATTEND Student in an Organized Health Care Education/Training Program | DX: J44.1 Chronic obstructive pulmonary disease with (acute) exacerbation (principal) ==

== ENCOUNTER 2022-10-15 13:55 | Inpatient (IN) | payer MEDICARE, BC ==
[~2022-10-15] VITALS: Ht 182.9 cm; Wt 86.5 kg
[2022-10-15 19:15] VITALS: BP 136/69
[2022-10-15 19:21] LABS: BASO % 0.3 % (0.0-1.0); EOS # 0.1 10^3/uL (0.0-0.5); HEMATOCRIT 40.3 % (42.0-52.0); HEMOGLOBIN 12.7 g/dl (13.5-17.5); LYMPH % 24.7 % (24.0-44.0); MEAN CORPUSCULAR HEMOGLOBIN 27.1 pg (27.0-33.0); MEAN CORPUSCULAR HGB CONC 31.5 g/dl (32.0-36.5); MEAN CORPUSCULAR VOLUME 85.9 fl (80.0-96.0); MONO # 0.6 10^3/uL (0.0-0.8); MONO % 15.4 % (2.0-8.0); NEUTROPHILS # 2.3 10^3/uL (1.5-8.5); NEUTROPHILS % 57.1 % (36.0-66.0); PLATELET COUNT, AUTOMATED 129 10^3/uL (150-450); RED BLOOD COUNT 4.69 10^6/uL (4.30-6.10)
[2022-10-15 19:34] LABS: INR 1.03; PROTHROMBIN TIME 13.7 SECONDS (12.5-14.5)
[2022-10-15 19:45] LABS: MAGNESIUM LEVEL 1.7 MG/DL (1.8-2.4)
[2022-10-15 19:48] LABS: ALBUMIN 3.1 G/DL (3.2-5.2); ALKALINE PHOSPHATASE 151 U/L (46-116); ALT/SGPT 60 U/L (7.0-40); AST/SGOT 82 U/L (<34); BILIRUBIN,TOTAL 0.8 MG/DL (0.3-1.2); BLOOD UREA NITROGEN 20 MG/DL (9-23); CALCIUM LEVEL 8.5 MG/DL (8.3-10.6); CARBON DIOXIDE LEVEL 27 MMOL/L (20-31); CHLORIDE LEVEL 100 MMOL/L (98-107); CREATININE FOR GFR 0.71 MG/DL (0.70-1.30); GLOMERULAR FILTRATION RATE > 60.0 (>42); GLUCOSE, FASTING 188 MG/DL (74-106); PHOSPHORUS LEVEL 2.4 MG/DL (2.4-5.1); POTASSIUM SERUM 4.4 MMOL/L (3.5-5.1); SODIUM LEVEL 136 MMOL/L (136-145); TOTAL PROTEIN 6.7 G/DL (5.7-8.2)
[2022-10-15 19:58] LABS: CK-MB VALUE MASS 2.4 NG/ML (<3.6)
[2022-10-15 19:59] LABS: MB/CK RELATIVE INDEX 2.85 (< OR =4)
[2022-10-15 20:00] VITALS: BP 136/69
[2022-10-15] MEDS ORDERED: PROPRANOLOL 60MG LA CAP PO SCH (21:00)
[2022-10-15] MEDS ORDERED: GLUCOSE 4GM CHEW TABLET PO PRN (21:25)
[2022-10-15] MEDS ORDERED: DEXTROSE 50% 50ML SYRINGE IV PRN (21:25)
[2022-10-15] MEDS ORDERED: GLUCAGON INJ 1MG VIAL SC PRN (21:25)
[2022-10-15] MEDS ORDERED: ALBUTEROL SULFATE 2.5MG/0.5ML INH NEB SOLN NEB PRN (21:40)
[2022-10-15 22:00] VITALS: O2SAT 95
[2022-10-15] MEDS: LEVEMIR (INSULIN DETEMIR) 1 UNITS/0.01ML SC SCH (22:49)
[2022-10-15] MEDS ORDERED: ALBU2.5V10 INH (23:09)
[2022-10-15] MEDS ORDERED: FURO40TA2 PO (23:09)
[2022-10-15] MEDS ORDERED: LOSA50TA28 PO (23:09)
[2022-10-15] MEDS ORDERED: LACT20EL PO (23:09)
[2022-10-15] MEDS ORDERED: PROP60CA PO (23:09)
[2022-10-15] MEDS ORDERED: FURO20TA2 PO (23:09)
[2022-10-15] MEDS: IPRATROPIUM 0.5MG/ALBUTEROL 2.5MG INH SOL UD 3ML (DUONEB) NEB SCH (23:10)
[2022-10-15] MEDS ORDERED: POTA1TAB14 PO (23:34)
[2022-10-15] MEDS ORDERED: GLUC1AUT2 SC (23:34)
[2022-10-15] MEDS ORDERED: BENZ-18 PO (23:34)
[2022-10-15] MEDS ORDERED: AMMO12LO TOP (23:34)
[2022-10-15] MEDS ORDERED: HOME MED LIST COMPLETE! XX SCH (23:40)
[2022-10-16] VITALS (24 sets, daily range): BP systolic 105–160; BP diastolic 55–74; O2SAT 90–100
[2022-10-16] MEDS: LACTULOSE 20GM/30ML SYRUP UDC PO SCH ×4 (00:33→21:15)
[2022-10-16] MEDS: TAMSULOSIN 0.4 MG CAP PO SCH ×2 (00:34→21:15)
[2022-10-16] MEDS: IPRATROPIUM 0.5MG/ALBUTEROL 2.5MG INH SOL UD 3ML (DUONEB) NEB SCH ×3 (03:40→11:41)
[2022-10-16 03:44] LABS: PLATELET COUNT, AUTOMATED 107 10^3/uL (150-450)
[2022-10-16 04:04] LABS: MAGNESIUM LEVEL 1.4 MG/DL (1.8-2.4)
[2022-10-16 04:06] LABS: ALBUMIN 3.1 G/DL (3.2-5.2); ALKALINE PHOSPHATASE 159 U/L (46-116); ALT/SGPT 57 U/L (7.0-40); AST/SGOT 72 U/L (<34); BILIRUBIN,TOTAL 0.9 MG/DL (0.3-1.2); BLOOD UREA NITROGEN 19 MG/DL (9-23); CALCIUM LEVEL 8.3 MG/DL (8.3-10.6); CARBON DIOXIDE LEVEL 28 MMOL/L (20-31); CHLORIDE LEVEL 98 MMOL/L (98-107); CREATININE FOR GFR 0.75 MG/DL (0.70-1.30); GLOMERULAR FILTRATION RATE > 60.0 (>42); GLUCOSE, FASTING 300 MG/DL (74-106); POTASSIUM SERUM 4.4 MMOL/L (3.5-5.1); SODIUM LEVEL 136 MMOL/L (136-145); TOTAL PROTEIN 6.7 G/DL (5.7-8.2)
[2022-10-16] MEDS: ACETAMINOPHEN TAB 650MG DOSE (2X325MG) PO PRN ×2 (04:51→09:26)
[2022-10-16] MEDS: HEPARIN SOD (PORCINE) 5000UNITS/ML 1ML VIAL/SYRINGE SQ SCH ×3 (06:15→21:21)
[2022-10-16] MEDS ORDERED: DOCUSATE SODIUM 100MG CAPSULE PO PRN (07:15)
[2022-10-16] MEDS: INSULIN LISPRO (NovoLOG) PER UNIT SC SCH ×3 (07:30→17:05)
[2022-10-16 07:52] LABS: BASO % 0.1 % (0.0-1.0); EOS % 0.1 % (0.0-3.0); HEMATOCRIT 38.9 % (42.0-52.0); HEMOGLOBIN 12.4 g/dl (13.5-17.5); LYMPH # 0.3 10^3/uL (1.5-5.0); LYMPH % 3.3 % (24.0-44.0); MEAN CORPUSCULAR HEMOGLOBIN 27.5 pg (27.0-33.0); MEAN CORPUSCULAR HGB CONC 31.9 g/dl (32.0-36.5); MEAN CORPUSCULAR VOLUME 86.3 fl (80.0-96.0); MONO # 0.6 10^3/uL (0.0-0.8); MONO % 5.8 % (2.0-8.0); NEUTROPHILS % 90.1 % (36.0-66.0); RED BLOOD COUNT 4.51 10^6/uL (4.30-6.10)
[2022-10-16] MEDS ORDERED: FLUTICASONE HFA 220 MCG 12 GM INHALER (FLOVENT) INH SCH (08:00)
[2022-10-16 08:24] LABS: PLATELET COUNT, AUTOMATED 99 10^3/uL (150-450)
[2022-10-16] MEDS: LEVEMIR (INSULIN DETEMIR) 1 UNITS/0.01ML SC SCH ×2 (09:24→21:18)
[2022-10-16] MEDS: POTASSIUM CHLORIDE 10MEQ SR TABLET PO SCH (09:25)
[2022-10-16] MEDS: FUROSEMIDE 20 MG TAB PO SCH (09:26)
[2022-10-16] MEDS: MULTIVITAMINS/MINERALS THERAP 1 TAB PO SCH (09:26)
[2022-10-16] MEDS: LOSARTAN 50MG TABLET PO SCH (09:26)
[2022-10-16] MEDS: BENZONATATE 100MG CAPSULE PO SCH ×3 (09:26→21:17)
[2022-10-16] MEDS: PANTOPRAZOLE 40MG TAB (PROTONIX) PO SCH (09:26)
[2022-10-16] MEDS: MAGNESIUM OXIDE 400MG TAB (MAG-OX) PO SCH ×3 (09:27→21:17)
[2022-10-16 10:10] LABS: APPEARANCE, URINE MANUAL HAZY (CLEAR); COLOR, URINE MANUAL YELLOW (YELLOW)
[2022-10-16 10:11] LABS: BILIRUBIN, URINE MANUAL NEGATIVE (NEGATIVE); GLUCOSE, URINE (UA) MANUAL 2+(250 MG/DL) mg/dL (NEGATIVE); KETONE, URINE MANUAL 1+ mg/dL (NEGATIVE); NITRITE, URINE MANUAL NEGATIVE (NEGATIVE); PROTEIN, URINE MANUAL TRACE mg/dL (NEGATIVE); UROBILINOGEN, URINE MANUAL NORMAL (NORMAL)
[2022-10-16 10:12] LABS: BLOOD URINE MANUAL TRACE (NEGATIVE); LEUKOCYTE ESTERASE, URINE MAN TRACE (NEGATIVE)
[2022-10-16 10:47] LABS: SQUAMOUS EPITHELIAL CELL URINE SMALL AMOUNT /hpf (SMALL AMT)
[2022-10-16 10:48] LABS: BACTERIA, URINE SMALL AMOUNT; HYALINE CAST, URINE NONE SEEN /lpf (0-1); MUCUS, URINE SMALL AMOUNT (NEGATIVE)
[2022-10-16] MEDS: CREON-24 CAPSULE PO SCH ×2 (12:04→17:05)
[2022-10-16] MEDS ORDERED: LEVEMIR (INSULIN DETEMIR) 1 UNITS/0.01ML SC ONE (14:30)
[2022-10-16] MEDS: MIRALAX *UNIT DOSE* 17GM PACKET PO SCH ×2 (14:50→21:18)
[2022-10-16] MEDS ORDERED: cefTRIAXone SOD 1 GM in D5W MINI-BAG PLUS 50 ML IV SCH (15:00)
[2022-10-16] MEDS: ALBUTEROL SULFATE 2.5MG/0.5ML INH NEB SOLN INH SCH ×3 (15:38→23:01)
[2022-10-16] MEDS: predniSONE 50 MG TAB PO SCH (16:07)
[2022-10-16] MEDS: ADVAIR HFA 230/21MCG INHALER INH SCH (20:35)
[2022-10-16] MEDS ORDERED: ATORVASTATIN 20 MG TAB PO SCH (21:00)
[2022-10-16] MEDS: METOPROLOL SUCC (TopROL XL) 50MG **XL** TAB PO SCH (21:16)
[2022-10-17] VITALS (15 sets, daily range): BP systolic 134–178; BP diastolic 0–92; O2SAT 94–98
[2022-10-17] MEDS: ALBUTEROL SULFATE 2.5MG/0.5ML INH NEB SOLN INH SCH ×6 (03:22→23:47)
[2022-10-17 05:24] LABS: HEMOGLOBIN 11.8 g/dl (13.5-17.5); LYMPH # 0.5 10^3/uL (1.5-5.0); LYMPH % 8.8 % (24.0-44.0); MEAN CORPUSCULAR HEMOGLOBIN 27.5 pg (27.0-33.0); MEAN CORPUSCULAR HGB CONC 31.9 g/dl (32.0-36.5); MEAN CORPUSCULAR VOLUME 86.2 fl (80.0-96.0); MONO # 0.2 10^3/uL (0.0-0.8); MONO % 2.7 % (2.0-8.0); NEUTROPHILS # 4.8 10^3/uL (1.5-8.5); PLATELET COUNT, AUTOMATED 101 10^3/uL (150-450); RED BLOOD COUNT 4.29 10^6/uL (4.30-6.10); WHITE BLOOD COUNT 5.5 10^3/uL (4.0-10.0)
[2022-10-17] MEDS: HEPARIN SOD (PORCINE) 5000UNITS/ML 1ML VIAL/SYRINGE SQ SCH ×3 (05:32→21:28)
[2022-10-17 05:46] LABS: MAGNESIUM LEVEL 1.8 MG/DL (1.8-2.4)
[2022-10-17 05:47] LABS: BILIRUBIN,DIRECT 0.3 MG/DL (<0.4)
[2022-10-17 05:51] LABS: ALBUMIN 2.6 G/DL (3.2-5.2); ALKALINE PHOSPHATASE 134 U/L (46-116); ALT/SGPT 50 U/L (7.0-40); AST/SGOT 50 U/L (<34); BILIRUBIN,TOTAL 0.6 MG/DL (0.3-1.2); BLOOD UREA NITROGEN 20 MG/DL (9-23); CALCIUM LEVEL 8.1 MG/DL (8.3-10.6); CARBON DIOXIDE LEVEL 29 MMOL/L (20-31); CHLORIDE LEVEL 101 MMOL/L (98-107); CREATININE FOR GFR 0.68 MG/DL (0.70-1.30); GLOMERULAR FILTRATION RATE > 60.0 (>42); GLUCOSE, FASTING 322 MG/DL (74-106); POTASSIUM SERUM 4.4 MMOL/L (3.5-5.1); SODIUM LEVEL 136 MMOL/L (136-145)
[2022-10-17] MEDS: ADVAIR HFA 230/21MCG INHALER INH SCH ×2 (07:40→20:12)
[2022-10-17] MEDS: TIOTROPIUM INHALER/CAPSULE (SPIRIVA) INH SCH (07:40)
[2022-10-17] MEDS: MIRALAX *UNIT DOSE* 17GM PACKET PO SCH ×2 (08:15→20:50)
[2022-10-17] MEDS: CREON-24 CAPSULE PO SCH ×2 (08:15→17:46)
[2022-10-17] MEDS: BENZONATATE 100MG CAPSULE PO SCH ×3 (08:16→20:50)
[2022-10-17] MEDS: predniSONE 50 MG TAB PO SCH (08:16)
[2022-10-17] MEDS: LACTULOSE 20GM/30ML SYRUP UDC PO SCH ×3 (08:16→20:43)
[2022-10-17] MEDS: POTASSIUM CHLORIDE 10MEQ SR TABLET PO SCH (08:16)
[2022-10-17] MEDS: PANTOPRAZOLE 40MG TAB (PROTONIX) PO SCH (08:17)
[2022-10-17] MEDS: MULTIVITAMINS/MINERALS THERAP 1 TAB PO SCH (08:17)
[2022-10-17] MEDS: FUROSEMIDE 20 MG TAB PO SCH (08:17)
[2022-10-17] MEDS: LOSARTAN 50MG TABLET PO SCH ×2 (08:18→09:08)
[2022-10-17] MEDS: INSULIN LISPRO (NovoLOG) PER UNIT SC SCH ×3 (08:20→17:59)
[2022-10-17] MEDS: LEVEMIR (INSULIN DETEMIR) 1 UNITS/0.01ML SC SCH ×2 (08:20→20:51)
[2022-10-17] MEDS: MAGNESIUM OXIDE 400MG TAB (MAG-OX) PO SCH ×3 (08:24→20:46)
[2022-10-17] MEDS: CEFDINIR 300 MG CAP (OMNICEF) PO SCH ×2 (08:29→20:46)
[2022-10-17] MEDS ORDERED: HumuLIN N INSULIN (NovoLIN N) PER UNIT SC SCH ×2 (09:00)
[2022-10-17] MEDS ORDERED: INSULIN LISPRO (NovoLOG) PER UNIT SC ONE ×2 (16:00→17:45)
[2022-10-17] MEDS: BUDESONIDE 0.5 MG/2 ML INHALATION SUSPENSION INH SCH (20:14)
[2022-10-17] MEDS: ATORVASTATIN 20 MG TAB PO SCH (20:44)
[2022-10-17] MEDS: TAMSULOSIN 0.4 MG CAP PO SCH (20:46)
[2022-10-17] MEDS: METOPROLOL SUCC (TopROL XL) 50MG **XL** TAB PO SCH (20:48)
[2022-10-17] MEDS ORDERED: ISOVUE-370 76% 100ML VIAL As Ordered ONE (20:50)
[2022-10-18] VITALS (28 sets, daily range): BP systolic 133–161; BP diastolic 62–78; O2SAT 93–100
[2022-10-18] MEDS: ALBUTEROL SULFATE 2.5MG/0.5ML INH NEB SOLN INH SCH ×5 (04:00→21:37)
[2022-10-18 05:34] LABS: BASO % 0.1 % (0.0-1.0); EOS % 0.1 % (0.0-3.0); HEMATOCRIT 35.8 % (42.0-52.0); HEMOGLOBIN 11.2 g/dl (13.5-17.5); LYMPH # 0.6 10^3/uL (1.5-5.0); LYMPH % 8.6 % (24.0-44.0); MEAN CORPUSCULAR HEMOGLOBIN 26.9 pg (27.0-33.0); MEAN CORPUSCULAR HGB CONC 31.3 g/dl (32.0-36.5); MEAN CORPUSCULAR VOLUME 86.1 fl (80.0-96.0); MONO # 0.4 10^3/uL (0.0-0.8); MONO % 5.2 % (2.0-8.0); NEUTROPHILS # 6.2 10^3/uL (1.5-8.5); NEUTROPHILS % 85.4 % (36.0-66.0); PLATELET COUNT, AUTOMATED 125 10^3/uL (150-450); RED BLOOD COUNT 4.16 10^6/uL (4.30-6.10); WHITE BLOOD COUNT 7.2 10^3/uL (4.0-10.0)
[2022-10-18 06:09] LABS: MAGNESIUM LEVEL 1.9 MG/DL (1.8-2.4)
[2022-10-18 06:10] LABS: ALBUMIN 2.6 G/DL (3.2-5.2); ALKALINE PHOSPHATASE 122 U/L (46-116); ALT/SGPT 45 U/L (7.0-40); AST/SGOT 39 U/L (<34); BILIRUBIN,DIRECT 0.3 MG/DL (<0.4); BILIRUBIN,TOTAL 0.5 MG/DL (0.3-1.2); BLOOD UREA NITROGEN 14 MG/DL (9-23); CALCIUM LEVEL 8.3 MG/DL (8.3-10.6); CARBON DIOXIDE LEVEL 30 MMOL/L (20-31); CHLORIDE LEVEL 105 MMOL/L (98-107); CREATININE FOR GFR 0.61 MG/DL (0.70-1.30); GLOMERULAR FILTRATION RATE > 60.0 (>42); GLUCOSE, FASTING 79 MG/DL (74-106); POTASSIUM SERUM 3.7 MMOL/L (3.5-5.1); SODIUM LEVEL 141 MMOL/L (136-145); TOTAL PROTEIN 5.8 G/DL (5.7-8.2)
[2022-10-18] MEDS: HEPARIN SOD (PORCINE) 5000UNITS/ML 1ML VIAL/SYRINGE SQ SCH ×3 (06:15→20:51)
[2022-10-18] MEDS: INSULIN LISPRO (NovoLOG) PER UNIT SC SCH ×3 (07:30→17:49)
[2022-10-18] MEDS: BUDESONIDE 0.5 MG/2 ML INHALATION SUSPENSION INH SCH ×2 (07:45→21:40)
[2022-10-18] MEDS: ADVAIR HFA 230/21MCG INHALER INH SCH ×2 (07:45→20:00)
[2022-10-18] MEDS: TIOTROPIUM INHALER/CAPSULE (SPIRIVA) INH SCH (07:45)
[2022-10-18] MEDS: CEFDINIR 300 MG CAP (OMNICEF) PO SCH ×2 (08:29→20:47)
[2022-10-18] MEDS: MIRALAX *UNIT DOSE* 17GM PACKET PO SCH ×2 (08:29→20:52)
[2022-10-18] MEDS: predniSONE 20 MG TAB PO SCH (08:29)
[2022-10-18] MEDS: LACTULOSE 20GM/30ML SYRUP UDC PO SCH ×3 (08:31→20:46)
[2022-10-18] MEDS: LOSARTAN 50MG TABLET PO SCH (08:31)
[2022-10-18] MEDS: FUROSEMIDE 20 MG TAB PO SCH (08:32)
[2022-10-18] MEDS: POTASSIUM CHLORIDE 10MEQ SR TABLET PO SCH (08:32)
[2022-10-18] MEDS: CREON-24 CAPSULE PO SCH ×2 (08:32→17:48)
[2022-10-18] MEDS: MULTIVITAMINS/MINERALS THERAP 1 TAB PO SCH (08:32)
[2022-10-18] MEDS: BENZONATATE 100MG CAPSULE PO SCH ×3 (08:32→20:47)
[2022-10-18] MEDS: PANTOPRAZOLE 40MG TAB (PROTONIX) PO SCH (08:33)
[2022-10-18] MEDS: LEVEMIR (INSULIN DETEMIR) 1 UNITS/0.01ML SC SCH ×2 (08:33→20:50)
[2022-10-18] MEDS: HumuLIN N INSULIN (NovoLIN N) PER UNIT SC SCH (08:33)
[2022-10-18] MEDS: METOPROLOL SUCC (TopROL XL) 50MG **XL** TAB PO SCH (20:48)
[2022-10-18] MEDS: TAMSULOSIN 0.4 MG CAP PO SCH (20:49)
[2022-10-18] MEDS: ATORVASTATIN 20 MG TAB PO SCH (20:49)
[2022-10-18] MEDS ORDERED: INSULIN LISPRO (NovoLOG) PER UNIT SC SCH (21:00)
[2022-10-18] MEDS ORDERED: ISOVUE-370 76% 100ML VIAL As Ordered ONE (22:00)
[2022-10-19] VITALS (7 sets, daily range): BP systolic 154–158; BP diastolic 75–76; O2SAT 93–96
[2022-10-19] MEDS: ALBUTEROL SULFATE 2.5MG/0.5ML INH NEB SOLN INH SCH ×4 (04:43→11:35)
[2022-10-19] MEDS: HEPARIN SOD (PORCINE) 5000UNITS/ML 1ML VIAL/SYRINGE SQ SCH (05:15)
[2022-10-19 05:19] LABS: HEMATOCRIT 35.4 % (42.0-52.0); HEMOGLOBIN 11.2 g/dl (13.5-17.5); LYMPH # 0.6 10^3/uL (1.5-5.0); LYMPH % 9.6 % (24.0-44.0); MEAN CORPUSCULAR HEMOGLOBIN 27.3 pg (27.0-33.0); MEAN CORPUSCULAR HGB CONC 31.6 g/dl (32.0-36.5); MEAN CORPUSCULAR VOLUME 86.1 fl (80.0-96.0); MONO # 0.3 10^3/uL (0.0-0.8); MONO % 4.9 % (2.0-8.0); NEUTROPHILS # 5.4 10^3/uL (1.5-8.5); NEUTROPHILS % 85.2 % (36.0-66.0); PLATELET COUNT, AUTOMATED 116 10^3/uL (150-450); RED BLOOD COUNT 4.11 10^6/uL (4.30-6.10); WHITE BLOOD COUNT 6.4 10^3/uL (4.0-10.0)
[2022-10-19 05:51] LABS: MAGNESIUM LEVEL 1.9 MG/DL (1.8-2.4)
[2022-10-19 05:52] LABS: BILIRUBIN,DIRECT 0.2 MG/DL (<0.4)
[2022-10-19 05:58] LABS: ALBUMIN 2.5 G/DL (3.2-5.2); ALKALINE PHOSPHATASE 128 U/L (46-116); ALT/SGPT 55 U/L (7.0-40); AST/SGOT 41 U/L (<34); BILIRUBIN,TOTAL 0.5 MG/DL (0.3-1.2); BLOOD UREA NITROGEN 15 MG/DL (9-23); CALCIUM LEVEL 8.4 MG/DL (8.3-10.6); CARBON DIOXIDE LEVEL 28 MMOL/L (20-31); CHLORIDE LEVEL 104 MMOL/L (98-107); CREATININE FOR GFR 0.58 MG/DL (0.70-1.30); GLOMERULAR FILTRATION RATE > 60.0 (>42); GLUCOSE, FASTING 256 MG/DL (74-106); POTASSIUM SERUM 4.5 MMOL/L (3.5-5.1); SODIUM LEVEL 138 MMOL/L (136-145); TOTAL PROTEIN 5.5 G/DL (5.7-8.2)
[2022-10-19] MEDS: ADVAIR HFA 230/21MCG INHALER INH SCH (08:01)
[2022-10-19] MEDS: TIOTROPIUM INHALER/CAPSULE (SPIRIVA) INH SCH (08:01)
[2022-10-19] MEDS: BUDESONIDE 0.5 MG/2 ML INHALATION SUSPENSION INH SCH (08:01)
[2022-10-19] MEDS: MIRALAX *UNIT DOSE* 17GM PACKET PO SCH (08:27)
[2022-10-19] MEDS: LACTULOSE 20GM/30ML SYRUP UDC PO SCH (08:27)
[2022-10-19] MEDS: LEVEMIR (INSULIN DETEMIR) 1 UNITS/0.01ML SC SCH (08:27)
[2022-10-19] MEDS: POTASSIUM CHLORIDE 10MEQ SR TABLET PO SCH (08:28)
[2022-10-19] MEDS: INSULIN LISPRO (NovoLOG) PER UNIT SC SCH ×2 (08:28→12:34)
[2022-10-19] MEDS: predniSONE 20 MG TAB PO SCH (08:28)
[2022-10-19] MEDS: MULTIVITAMINS/MINERALS THERAP 1 TAB PO SCH (08:28)
[2022-10-19] MEDS: PANTOPRAZOLE 40MG TAB (PROTONIX) PO SCH (08:28)
[2022-10-19] MEDS: CEFDINIR 300 MG CAP (OMNICEF) PO SCH (08:28)
[2022-10-19] MEDS: FUROSEMIDE 20 MG TAB PO SCH (08:29)
[2022-10-19] MEDS: BENZONATATE 100MG CAPSULE PO SCH (08:29)
[2022-10-19] MEDS: CREON-24 CAPSULE PO SCH (08:29)
[2022-10-19] MEDS: LOSARTAN 50MG TABLET PO SCH (08:30)
[2022-10-19] MEDS: HumuLIN N INSULIN (NovoLIN N) PER UNIT SC SCH (08:36)
[2022-10-19] MEDS ORDERED: BUDE0.5S6 INH (10:21)
[2022-10-19] MEDS ORDERED: METO1TAB7 PO (10:21)
[2022-10-19] MEDS ORDERED: MIRA1POW3 PO (10:21)
[2022-10-19] MEDS ORDERED: PRED20TA PO ×2 (10:21→11:32)
[2022-10-19] MEDS ORDERED: LACT20EL PO (10:21)
[2022-10-19] MEDS ORDERED: CEFD300CAP PO (10:21)
[2022-10-19] MEDS ORDERED: FURO20TA2 PO (10:21)
[2022-10-19] MEDS ORDERED: AZIT-12 PO (11:32)
[2022-10-19] MEDS ORDERED: IPRA0.00 INH (11:32)
== END 2022-10-19 12:58 | disposition home health service (06) | DRG 191 ==
LOC: M PCU 18:19
PROVIDERS: ADMIT Family Medicine; ATTEND Family Medicine
DX: J43.9 Emphysema, unspecified (principal); I50.22 Chronic systolic (congestive) heart failure; E87.20 Acidosis, unspecified; K76.6 Portal hypertension; N39.0 Urinary tract infection, site not specified; K86.1 Other chronic pancreatitis; I85.00 Esophageal varices without bleeding; R64 Cachexia; E11.42 Type 2 diabetes mellitus with diabetic polyneuropathy; E11.65 Type 2 diabetes mellitus with hyperglycemia; R91.1 Solitary pulmonary nodule; K74.60 Unspecified cirrhosis of liver; K76.89 Other specified diseases of liver; I11.0 Hypertensive heart disease with heart failure; K21.9 Gastro-esophageal reflux disease without esophagitis; N40.0 Benign prostatic hyperplasia without lower urinary tract symptoms; D69.6 Thrombocytopenia, unspecified; E83.42 Hypomagnesemia; I25.10 Atherosclerotic heart disease of native coronary artery without angina pectoris; E78.5 Hyperlipidemia, unspecified; Z95.0 Presence of cardiac pacemaker; Z90.49 Acquired absence of other specified parts of digestive tract; Z86.718 Personal history of other venous thrombosis and embolism; Z79.4 Long term (current) use of insulin; Z79.84 Long term (current) use of oral hypoglycemic drugs; Z79.899 Other long term (current) drug therapy; Z20.822 Contact with and (suspected) exposure to COVID-19; Z86.16 Personal history of COVID-19; Z87.891 Personal history of nicotine dependence; Z95.5 Presence of coronary angioplasty implant and graft

== ENCOUNTER → 2022-10-26 | Outpatient (REF) | payer MEDICARE, BC ==
[~2022-10-26] MED LIST changes: +ALBU2.5V10 INH; +AZIT-12 PO; +BENZ-18 PO; +BUDE0.5S6 INH; +CEFD300CAP PO; +FURO40TA2 PO; +GLUC1AUT2 SC; +IPRA0.00 INH; +LOSA50TA28 PO; +MIRA1POW3 PO; +POTA1TAB14 PO; +PRED20TA PO; +PROP60CA PO
== END ==
LOC: M LAB REF 16:23
PROVIDERS: ATTEND Family Medicine
DX: K74.69 Other cirrhosis of liver (principal)

== ENCOUNTER → 2022-12-28 | Outpatient (CLI) | payer MEDICARE, BC ==
[2022-12-28 15:30] LABS: ALBUMIN 3.4 G/DL (3.2-5.2); ALKALINE PHOSPHATASE 126 U/L (46-116); ALT/SGPT 32 U/L (7.0-40); AST/SGOT 48 U/L (<34); BLOOD UREA NITROGEN 15 MG/DL (9-23); CALCIUM LEVEL 8.6 MG/DL (8.3-10.6); CARBON DIOXIDE LEVEL 30 MMOL/L (20-31); CHLORIDE LEVEL 102 MMOL/L (98-107); CREATININE FOR GFR 0.68 MG/DL (0.70-1.30); GLOMERULAR FILTRATION RATE > 60.0 (>42); GLUCOSE, FASTING 73 MG/DL (74-106); POTASSIUM SERUM 4.7 MMOL/L (3.5-5.1); SODIUM LEVEL 137 MMOL/L (136-145); TOTAL PROTEIN 6.6 G/DL (5.7-8.2)
== END ==
LOC: M LAB 14:11
PROVIDERS: ATTEND Nurse Practitioner Family
DX: I50.41 Acute combined systolic (congestive) and diastolic (congestive) heart failure (principal)

== ENCOUNTER 2023-03-11 10:52 | Inpatient (IN) | payer MEDICARE, BC ==
[~2023-03-11] VITALS: Ht 182.9 cm; Wt 93.3 kg
[~2023-03-11 10:52] MED LIST changes: -COZA50TA PO; +LOSA-528 PO; +POTA-298 PO; -POTA1TAB14 PO
[2023-03-11 11:47] LABS: BASO # 0.1 10^3/uL (0.0-0.2); BASO % 0.6 % (0.0-1.0); EOS # 0.1 10^3/uL (0.0-0.5); EOS % 0.6 % (0.0-3.0); HEMATOCRIT 37.6 % (42.0-52.0); HEMOGLOBIN 12.9 g/dl (13.5-17.5); LYMPH # 0.6 10^3/uL (1.5-5.0); MEAN CORPUSCULAR HEMOGLOBIN 30.4 pg (27.0-33.0); MEAN CORPUSCULAR HGB CONC 34.3 g/dl (32.0-36.5); MEAN CORPUSCULAR VOLUME 88.5 fl (80.0-96.0); MONO # 0.4 10^3/uL (0.0-0.8); MONO % 4.1 % (2.0-8.0); NEUTROPHILS # 7.6 10^3/uL (1.5-8.5); NEUTROPHILS % 87.5 % (36.0-66.0); PLATELET COUNT, AUTOMATED 150 10^3/uL (150-450); RED BLOOD COUNT 4.25 10^6/uL (4.30-6.10); WHITE BLOOD COUNT 8.6 10^3/uL (4.0-10.0)
[2023-03-11 11:57] LABS: INR 1.15; PROTHROMBIN TIME 14.9 SECONDS (12.5-14.5)
[2023-03-11 12:08] LABS: CK-MB VALUE MASS 2.2 NG/ML (<3.6)
[2023-03-11] MEDS ORDERED: NS 2,730 ML in IV 1 EA IV ONE (12:10)
[2023-03-11] MEDS ORDERED: PIPERACILLIN/TAZOBACTAM SOD 4.5 GM in D5W MINI-BAG PLUS 50 ML IV ONE (12:10)
[2023-03-11 12:11] LABS: ALBUMIN 3.3 G/DL (3.2-5.2); ALKALINE PHOSPHATASE 127 U/L (46-116); ALT/SGPT 30 U/L (7.0-40); AST/SGOT 46 U/L (<34); BILIRUBIN,DIRECT 0.5 MG/DL (<0.4); BILIRUBIN,TOTAL 1.1 MG/DL (0.3-1.2); BLOOD UREA NITROGEN 16 MG/DL (9-23); CALCIUM LEVEL 8.1 MG/DL (8.3-10.6); CARBON DIOXIDE LEVEL 26 MMOL/L (20-31); CHLORIDE LEVEL 105 MMOL/L (98-107); CREATININE FOR GFR 0.68 MG/DL (0.70-1.30); GLOMERULAR FILTRATION RATE > 60.0 (>42); GLUCOSE, FASTING 286 MG/DL (74-106); POTASSIUM SERUM 4.6 MMOL/L (3.5-5.1); SODIUM LEVEL 140 MMOL/L (136-145); TOTAL PROTEIN 6.2 G/DL (5.7-8.2)
[2023-03-11 12:13] LABS: CPK CREATINE PHOSPHOKINASE 97 U/L (46-171); MB/CK RELATIVE INDEX 2.26 (< OR =4); THYROID STIMULATING HORMONE 1.611 uIU/ML (0.55-4.78)
[2023-03-11 12:28] LABS: APPEARANCE, URINE HAZY (CLEAR); BACTERIA, URINE AUTO NEGATIVE (NEGATIVE); BILIRUBIN, URINE AUTO NEGATIVE (NEGATIVE); BLOOD, URINE BLOOD NEGATIVE (NEGATIVE); CALCIUM OXALATE CRYSTALS SMALL; COLOR, URINE YELLOW (YELLOW); GLUCOSE, URINE (UA) AUTO 2+ mg/dL (NEGATIVE); KETONE, URINE AUTO TRACE mg/dL (NEGATIVE); LEUKOCYTE ESTERASE, URINE AUTO NEGATIVE (NEGATIVE); NITRITE, URINE AUTO NEGATIVE (NEGATIVE); PROTEIN, URINE AUTO NEGATIVE (NEGATIVE); RBC, URINE AUTO 10 /HPF (0-3); SPECIFIC GRAVITY URINE AUTO 1.019 (1.002-1.035); SQUAMOUS EPITHELIAL CELL UR AU 0 /HPF (0-6); WBC, URINE AUTO 1 /HPF (0-3)
[2023-03-11 13:05] LABS: CK-MB VALUE MASS 2.2 NG/ML (<3.6)
[2023-03-11 13:09] LABS: MB/CK RELATIVE INDEX 2.11 (< OR =4)
[2023-03-11] MEDS ORDERED: LACTULOSE 20GM/30ML SYRUP UDC PO ONE (13:25)
[2023-03-11] MEDS ORDERED: ISOVUE-370 76% 100ML VIAL As Ordered ONE (13:46)
[2023-03-11] MEDS ORDERED: POLY17PO18 PO (14:42)
[2023-03-11] MEDS ORDERED: IPRA0.00 INH (14:42)
[2023-03-11] MEDS ORDERED: PROP60CA PO (14:42)
[2023-03-11] MEDS ORDERED: SPIR-10 PO (14:42)
[2023-03-11] MEDS ORDERED: LACT20EL PO (14:42)
[2023-03-11] MEDS ORDERED: BUDE0.5S6 INH (14:42)
[2023-03-11] MEDS ORDERED: VITA200030 PO (14:42)
[2023-03-11] MEDS ORDERED: FURO20TA2 PO ×2 (14:42→14:50)
[2023-03-11] MEDS ORDERED: HOME MED LIST COMPLETE! XX SCH (14:55)
[2023-03-11 14:58] LABS: ABG HCO3 24.4 MMOL/L (22.0-26.0); ABG O2 SATURATION 94.8 % (95.0-99.0); ABG PARTIAL PRESSURE CO2 38.8 mmHg (35.0-45.0); ABG PARTIAL PRESSURE O2 77.2 mmHg (75.0-100.0); ABG STANDARD HCO3 24.4 MMOL/L. (22.0-26.0); ABG TOTAL CO2 25.6 MMOL/L (23.0-31.0); ABG pH (ARTERIAL) 7.416 UNITS (7.350-7.450)
[2023-03-11 15:40] VITALS: BP 138/52
[2023-03-11] MEDS ORDERED: DEXTROSE 50% 50ML SYRINGE IV PRN (17:45)
[2023-03-11] MEDS ORDERED: GLUCOSE 4GM CHEW TABLET PO PRN (17:45)
[2023-03-11] MEDS ORDERED: LACTIC ACID 12% LOTION 225 GM BTL TOP PRN (17:45)
[2023-03-11] MEDS ORDERED: FUROSEMIDE 20 MG TAB PO PRN (17:45)
[2023-03-11] MEDS ORDERED: DOCUSATE SODIUM 100MG CAPSULE PO PRN (17:45)
[2023-03-11] MEDS ORDERED: GLUCAGON INJ 1MG VIAL SC PRN (17:45)
[2023-03-11] MEDS ORDERED: MIRALAX *UNIT DOSE* 17GM PACKET PO PRN (17:45)
[2023-03-11] MEDS ORDERED: LACTULOSE 20GM/30ML SYRUP UDC PO PRN (17:45)
[2023-03-11] MEDS ORDERED: LevoFLOXacin IV 750 MG in IV 1 EA IV SCH (18:00)
[2023-03-11] MEDS: INSULIN LISPRO (NovoLOG) PER UNIT SC SCH ×2 (18:30→20:23)
[2023-03-11] MEDS ORDERED: LEVEMIR (INSULIN DETEMIR) 1 UNITS/0.01ML SC ONE (18:45)
[2023-03-11] MEDS: LEVEMIR (INSULIN DETEMIR) 1 UNITS/0.01ML SC SCH (18:46)
[2023-03-11] MEDS: BUDESONIDE 0.5 MG/2 ML INHALATION SUSPENSION INH SCH (19:54)
[2023-03-11] MEDS: IPRATROPIUM 0.5MG/ALBUTEROL 2.5MG INH SOL UD 3ML (DUONEB) INH SCH (19:54)
[2023-03-11] MEDS: ATORVASTATIN 20 MG TAB PO SCH (20:21)
[2023-03-11] MEDS: predniSONE 10MG TAB PO SCH (20:21)
[2023-03-11] MEDS: TAMSULOSIN 0.4 MG CAP PO SCH (20:21)
[2023-03-11 20:55] VITALS: BP 135/65
[2023-03-11] MEDS ORDERED: INSULIN LISPRO (NovoLOG) PER UNIT SC ONE (21:35)
[2023-03-11] MEDS: RAMELTEON 8 MG TAB (ROZEREM) PO PRN (21:57)
[2023-03-12] MEDS: IPRATROPIUM 0.5MG/ALBUTEROL 2.5MG INH SOL UD 3ML (DUONEB) INH SCH ×4 (01:44→19:33)
[2023-03-12 06:00] VITALS: BP 109/52
[2023-03-12 06:28] LABS: HEMATOCRIT 30.8 % (42.0-52.0); MEAN CORPUSCULAR HEMOGLOBIN 30.1 pg (27.0-33.0); MEAN CORPUSCULAR HGB CONC 33.8 g/dl (32.0-36.5); MEAN CORPUSCULAR VOLUME 89.3 fl (80.0-96.0); PLATELET COUNT, AUTOMATED 100 10^3/uL (150-450); RED BLOOD COUNT 3.45 10^6/uL (4.30-6.10); WHITE BLOOD COUNT 9.4 10^3/uL (4.0-10.0)
[2023-03-12 06:34] LABS: HEMOGLOBIN 10.4 g/dl (13.5-17.5)
[2023-03-12 06:56] LABS: BLOOD UREA NITROGEN 17 MG/DL (9-23); CALCIUM LEVEL 7.8 MG/DL (8.3-10.6); CARBON DIOXIDE LEVEL 28 MMOL/L (20-31); CHLORIDE LEVEL 105 MMOL/L (98-107); CREATININE FOR GFR 0.66 MG/DL (0.70-1.30); GLOMERULAR FILTRATION RATE > 60.0 (>42); GLUCOSE, FASTING 268 MG/DL (74-106); MAGNESIUM LEVEL 1.3 MG/DL (1.8-2.4); SODIUM LEVEL 139 MMOL/L (136-145)
[2023-03-12 06:57] LABS: HEMOGLOBIN A1c 7.9 % (4.0-6.0)
[2023-03-12] MEDS: BUDESONIDE 0.5 MG/2 ML INHALATION SUSPENSION INH SCH ×2 (07:13→19:33)
[2023-03-12] MEDS: MAG SULF 1GM/100ML (MAG RUN) 1 GM in IV 1 EA IV SCH ×4 (08:00→11:02)
[2023-03-12] MEDS: FUROSEMIDE 20 MG TAB PO SCH (08:01)
[2023-03-12] MEDS: SPIRONOLACTONE 12.5MG PER 1/2 TABLET PO SCH (08:01)
[2023-03-12] MEDS: PROPRANOLOL 60MG LA CAP PO SCH (08:01)
[2023-03-12] MEDS: LOSARTAN 50MG TABLET PO SCH (08:02)
[2023-03-12] MEDS: predniSONE 10MG TAB PO SCH ×3 (08:02→21:08)
[2023-03-12] MEDS: CREON-12 CAPSULE PO SCH ×2 (08:02→17:42)
[2023-03-12] MEDS: LEVEMIR (INSULIN DETEMIR) 1 UNITS/0.01ML SC SCH ×2 (08:03→21:10)
[2023-03-12] MEDS: INSULIN LISPRO (NovoLOG) PER UNIT SC SCH ×4 (08:04→21:09)
[2023-03-12] MEDS: ENOXAPARIN 40MG/0.4ML SYRINGE (J1650 PER 10MG) SC SCH (08:04)
[2023-03-12] MEDS ORDERED: PANTOPRAZOLE 40MG TAB (PROTONIX) PO SCH (09:00)
[2023-03-12] MEDS: LevoFLOXacin 750 MG TABLET PO SCH (11:56)
[2023-03-12 20:00] VITALS: BP 134/79
[2023-03-12] MEDS: ATORVASTATIN 20 MG TAB PO SCH (21:08)
[2023-03-12] MEDS: TAMSULOSIN 0.4 MG CAP PO SCH (21:09)
[2023-03-12] MEDS: RAMELTEON 8 MG TAB (ROZEREM) PO PRN (22:06)
[2023-03-13] MEDS: IPRATROPIUM 0.5MG/ALBUTEROL 2.5MG INH SOL UD 3ML (DUONEB) INH SCH ×4 (01:00→19:51)
[2023-03-13 05:52] VITALS: BP 157/78
[2023-03-13] MEDS: LevoFLOXacin 750 MG TABLET PO SCH (06:05)
[2023-03-13] MEDS: BUDESONIDE 0.5 MG/2 ML INHALATION SUSPENSION INH SCH ×2 (08:01→19:51)
[2023-03-13] MEDS: LEVEMIR (INSULIN DETEMIR) 1 UNITS/0.01ML SC SCH ×2 (08:28→21:17)
[2023-03-13] MEDS: ENOXAPARIN 40MG/0.4ML SYRINGE (J1650 PER 10MG) SC SCH (08:28)
[2023-03-13] MEDS: CREON-12 CAPSULE PO SCH ×2 (08:29→17:52)
[2023-03-13] MEDS: INSULIN LISPRO (NovoLOG) PER UNIT SC SCH ×4 (08:29→21:18)
[2023-03-13] MEDS: predniSONE 10MG TAB PO SCH ×3 (08:30→21:16)
[2023-03-13] MEDS: SPIRONOLACTONE 12.5MG PER 1/2 TABLET PO SCH (08:30)
[2023-03-13] MEDS: FUROSEMIDE 20 MG TAB PO SCH (08:30)
[2023-03-13 08:31] VITALS: BP 155/77
[2023-03-13] MEDS: LOSARTAN 50MG TABLET PO SCH (08:31)
[2023-03-13] MEDS: PROPRANOLOL 60MG LA CAP PO SCH (08:31)
[2023-03-13 14:00] VITALS: BP_SYST 138; BP_SYST 190; BP_DIAS 108; BP_DIAS 64
[2023-03-13 20:16] VITALS: BP 156/67
[2023-03-13] MEDS: ATORVASTATIN 20 MG TAB PO SCH (21:16)
[2023-03-13] MEDS: TAMSULOSIN 0.4 MG CAP PO SCH (21:16)
[2023-03-13] MEDS: RAMELTEON 8 MG TAB (ROZEREM) PO PRN (21:17)
[2023-03-14] MEDS: IPRATROPIUM 0.5MG/ALBUTEROL 2.5MG INH SOL UD 3ML (DUONEB) INH SCH ×2 (00:58→07:20)
[2023-03-14 06:00] VITALS: BP 153/79
[2023-03-14 06:18] LABS: HEMATOCRIT 31.5 % (42.0-52.0); HEMOGLOBIN 10.7 g/dl (13.5-17.5); MEAN CORPUSCULAR HEMOGLOBIN 30.1 pg (27.0-33.0); MEAN CORPUSCULAR VOLUME 88.7 fl (80.0-96.0); PLATELET COUNT, AUTOMATED 101 10^3/uL (150-450); RED BLOOD COUNT 3.55 10^6/uL (4.30-6.10); WHITE BLOOD COUNT 7.6 10^3/uL (4.0-10.0)
[2023-03-14 06:39] LABS: BLOOD UREA NITROGEN 19 MG/DL (9-23); CALCIUM LEVEL 8.5 MG/DL (8.3-10.6); CARBON DIOXIDE LEVEL 31 MMOL/L (20-31); CHLORIDE LEVEL 101 MMOL/L (98-107); CREATININE FOR GFR 0.67 MG/DL (0.70-1.30); GLOMERULAR FILTRATION RATE > 60.0 (>42); GLUCOSE, FASTING 348 MG/DL (74-106); SODIUM LEVEL 137 MMOL/L (136-145)
[2023-03-14] MEDS: LevoFLOXacin 750 MG TABLET PO SCH (06:44)
[2023-03-14] MEDS: BUDESONIDE 0.5 MG/2 ML INHALATION SUSPENSION INH SCH (07:20)
[2023-03-14] MEDS: LEVEMIR (INSULIN DETEMIR) 1 UNITS/0.01ML SC SCH (08:17)
[2023-03-14] MEDS: INSULIN LISPRO (NovoLOG) PER UNIT SC SCH ×2 (08:18→12:11)
[2023-03-14] MEDS: SPIRONOLACTONE 12.5MG PER 1/2 TABLET PO SCH (08:18)
[2023-03-14] MEDS: LOSARTAN 50MG TABLET PO SCH (08:18)
[2023-03-14] MEDS: CREON-12 CAPSULE PO SCH (08:18)
[2023-03-14] MEDS: PROPRANOLOL 60MG LA CAP PO SCH (08:18)
[2023-03-14] MEDS: ENOXAPARIN 40MG/0.4ML SYRINGE (J1650 PER 10MG) SC SCH (08:18)
[2023-03-14] MEDS: predniSONE 10MG TAB PO SCH (08:19)
[2023-03-14] MEDS: FUROSEMIDE 20 MG TAB PO SCH (08:19)
[2023-03-14] MEDS ORDERED: CEPH500C PO (10:23)
[2023-03-14] MEDS ORDERED: PRED20TA PO (10:23)
[2023-03-14] MEDS ORDERED: CEPHALEXIN 500 MG CAP PO SCH (12:00)
[2023-03-16 16:08] LABS: BODY FLUID CULTURE Not indicated. (.); ORGANISM ID Not indicated. (.); SPECIMEN SOURCE Urine (.); URINE STREP PNEUMONIAE ANTIGEN Negative (Negative)
== END 2023-03-14 13:19 | disposition home or self-care (01) | DRG 177 ==
LOC: EDBD 10:52 → M ED 10:52 → M ED INP 13:34 → ENRESERV 14:58 → M MSPAV 15:46
PROVIDERS: ADMIT Internal Medicine; ATTEND Family Medicine
DX: J15.6 Pneumonia due to other Gram-negative bacteria (principal); G93.41 Metabolic encephalopathy; J96.01 Acute respiratory failure with hypoxia; I50.22 Chronic systolic (congestive) heart failure; J47.0 Bronchiectasis with acute lower respiratory infection; J47.1 Bronchiectasis with (acute) exacerbation; I85.00 Esophageal varices without bleeding; J15.5 Pneumonia due to Escherichia coli; I25.10 Atherosclerotic heart disease of native coronary artery without angina pectoris; E78.5 Hyperlipidemia, unspecified; K21.9 Gastro-esophageal reflux disease without esophagitis; R63.4 Abnormal weight loss; K70.30 Alcoholic cirrhosis of liver without ascites; I11.0 Hypertensive heart disease with heart failure; K86.89 Other specified diseases of pancreas; E11.9 Type 2 diabetes mellitus without complications; R91.1 Solitary pulmonary nodule; K22.89 Other specified disease of esophagus; Z95.0 Presence of cardiac pacemaker; Z95.5 Presence of coronary angioplasty implant and graft; Z95.828 Presence of other vascular implants and grafts; Z87.891 Personal history of nicotine dependence; Z85.46 Personal history of malignant neoplasm of prostate; Z20.822 Contact with and (suspected) exposure to COVID-19; Z66 Do not resuscitate; Z79.84 Long term (current) use of oral hypoglycemic drugs; Z79.4 Long term (current) use of insulin; Z79.899 Other long term (current) drug therapy

== ENCOUNTER → 2023-03-25 | Outpatient (CLI) | payer MEDICARE, BC ==
[~2023-03-25] MED LIST changes: +CEPH500C PO; +CONS10SO3; +LEVO1TAB39; +POLY17PO18 PO; +SPIR-10 PO; +VITA200030 PO
[2023-03-25 12:03] LABS: PERCENT SATURATION 19.3 % (19.7-50.0)
[2023-03-25 12:04] LABS: FERRITIN 23.6 NG/ML (10.5-307.3)
== END ==
LOC: M LAB 09:43
PROVIDERS: ATTEND Student in an Organized Health Care Education/Training Program
DX: D64.9 Anemia, unspecified (principal); R63.4 Abnormal weight loss

== ENCOUNTER → 2023-04-01 | Outpatient (CLI) | payer MEDICARE, BC ==
[~2023-04-01] MED LIST changes: -CONS10SO3; -LEVO1TAB39
== END ==
LOC: M WUC 14:37
PROVIDERS: ATTEND Physician Assistant Medical
DX: N39.0 Urinary tract infection, site not specified (principal); R91.8 Other nonspecific abnormal finding of lung field; Z95.1 Presence of aortocoronary bypass graft; Z95.0 Presence of cardiac pacemaker; I70.0 Atherosclerosis of aorta

== ENCOUNTER 2023-04-07 15:09 | Emergency (ER) | payer MEDICARE, BC ==
[~2023-04-07] VITALS: Ht 182.9 cm; Wt 88.9 kg
[2023-04-07] MEDS ORDERED: LEVO1TAB39 (15:33)
[2023-04-07] MEDS ORDERED: CONS10SO3 (15:33)
[2023-04-07 16:51] LABS: VENOUS BASE EXCESS 4.3 (-2.0-2.0); VENOUS HCO3 32.3 MMOL/L (23.0-27.0); VENOUS O2 SATURATION 59.2 % (60.0-80.0); VENOUS PARTIAL PRESSURE CO2 65.7 mmHg (38.0-50.0); VENOUS PARTIAL PRESSURE O2 34.3 mmHg (30.0-50.0); VENOUS PH 7.309 UNITS (7.330-7.430); VENOUS STANDARD HCO3 27.4 MMOL/L; VENOUS TOTAL CO2 34.3 MMOL/L (24.0-28.0)
[2023-04-07 17:06] LABS: BASO % 0.8 % (0.0-1.0); EOS # 0.3 10^3/uL (0.0-0.5); EOS % 6.8 % (0.0-3.0); HEMOGLOBIN 11.6 g/dl (13.5-17.5); LYMPH # 0.8 10^3/uL (1.5-5.0); LYMPH % 19.9 % (24.0-44.0); MEAN CORPUSCULAR HEMOGLOBIN 30.1 pg (27.0-33.0); MEAN CORPUSCULAR HGB CONC 33.1 g/dl (32.0-36.5); MEAN CORPUSCULAR VOLUME 90.9 fl (80.0-96.0); MONO # 0.4 10^3/uL (0.0-0.8); MONO % 10.8 % (2.0-8.0); NEUTROPHILS # 2.3 10^3/uL (1.5-8.5); NEUTROPHILS % 60.9 % (36.0-66.0); PLATELET COUNT, AUTOMATED 163 10^3/uL (150-450); RED BLOOD COUNT 3.85 10^6/uL (4.30-6.10); WHITE BLOOD COUNT 3.8 10^3/uL (4.0-10.0)
[2023-04-07 17:22] LABS: ALBUMIN 3.1 G/DL (3.2-5.2); ALKALINE PHOSPHATASE 119 U/L (46-116); ALT/SGPT 31 U/L (7.0-40); AST/SGOT 30 U/L (<34); BILIRUBIN,DIRECT 0.2 MG/DL (<0.4); BILIRUBIN,TOTAL 0.6 MG/DL (0.3-1.2); BLOOD UREA NITROGEN 13 MG/DL (9-23); CALCIUM LEVEL 9.6 MG/DL (8.3-10.6); CARBON DIOXIDE LEVEL 31 MMOL/L (20-31); CHLORIDE LEVEL 100 MMOL/L (98-107); GLOMERULAR FILTRATION RATE > 60.0 (>42); GLUCOSE, FASTING 242 MG/DL (74-106); POTASSIUM SERUM 4.8 MMOL/L (3.5-5.1); SODIUM LEVEL 134 MMOL/L (136-145); TOTAL PROTEIN 6.1 G/DL (5.7-8.2)
[2023-04-07 17:24] LABS: THYROXINE (T4) 9.2 UG/DL (4.5-10.9)
[2023-04-07 17:25] LABS: THYROID STIMULATING HORMONE 1.657 uIU/ML (0.55-4.78)
[2023-04-07] MEDS ORDERED: ISOVUE-370 76% 100ML VIAL As Ordered ONE (17:31)
[2023-04-07 17:39] LABS: ABG BASE EXCESS 2.7 (-2.0-2.0); ABG HCO3 27.5 MMOL/L (22.0-26.0); ABG PARTIAL PRESSURE CO2 42.8 mmHg (35.0-45.0); ABG PARTIAL PRESSURE O2 71.2 mmHg (75.0-100.0); ABG STANDARD HCO3 26.8 MMOL/L. (22.0-26.0); ABG TOTAL CO2 28.8 MMOL/L (23.0-31.0); ABG pH (ARTERIAL) 7.425 UNITS (7.350-7.450)
[2023-04-07] MEDS ORDERED: IPRATROPIUM 0.5MG/ALBUTEROL 2.5MG INH SOL UD 3ML (DUONEB) NEB ONE (18:55)
[2023-04-07 19:15] VITALS: BP 143/65; TEMP 98; O2SAT 98
[2023-04-07 20:54] VITALS: O2SAT 98
== END 2023-04-07 20:54 | disposition home or self-care (01) ==
LOC: M ED 15:09
DX: R06.00 Dyspnea, unspecified (principal); R05.9 Cough, unspecified; E11.9 Type 2 diabetes mellitus without complications; I11.9 Hypertensive heart disease without heart failure; I50.20 Unspecified systolic (congestive) heart failure; E78.5 Hyperlipidemia, unspecified; Z85.46 Personal history of malignant neoplasm of prostate; K70.30 Alcoholic cirrhosis of liver without ascites; K86.9 Disease of pancreas, unspecified; K83.8 Other specified diseases of biliary tract; Z95.0 Presence of cardiac pacemaker; Z79.52 Long term (current) use of systemic steroids; Z79.899 Other long term (current) drug therapy; Z79.84 Long term (current) use of oral hypoglycemic drugs; Z79.51 Long term (current) use of inhaled steroids; Z79.4 Long term (current) use of insulin
CPT/HCPCS: 36600; 71045; 71275; 80048; 80076; 82140; 82803; 83605; 83880; 84436; 84443; 85025; 87040; 87486; 87581; 87633; 87798; 93005; 93041; 94640; 94760; 99285; Q9967

== ENCOUNTER → 2023-06-01 | Outpatient (REF) | payer MEDICARE, BC ==
[~2023-06-01] MED LIST changes: +CONS10SO3; +LEVO1TAB39
== END ==
LOC: M LAB REF 16:01
PROVIDERS: ATTEND Family Medicine
DX: Z95.0 Presence of cardiac pacemaker (principal); I25.10 Atherosclerotic heart disease of native coronary artery without angina pectoris; K74.60 Unspecified cirrhosis of liver

== ENCOUNTER → 2023-10-12 | Outpatient (CLI) | payer MEDICARE, BC | LOC: M PLAIMG 13:27 | PROVIDERS: ATTEND Internal Medicine Pulmonary Disease | DX: R91.8 Other nonspecific abnormal finding of lung field (principal) ==

== ENCOUNTER → 2024-05-25 | Outpatient (CLI) | payer MEDICARE, BC ==
[~2024-05-25] MED LIST changes: -MIRA1POW3 PO; +MIRA33506 PO
[2024-05-25 13:33] LABS: HEMATOCRIT 37.7 % (42.0-52.0); MEAN CORPUSCULAR HEMOGLOBIN 31.3 pg (27.0-33.0); MEAN CORPUSCULAR HGB CONC 34.5 g/dl (32.0-36.5); MEAN CORPUSCULAR VOLUME 90.6 fl (80.0-96.0); PLATELET COUNT, AUTOMATED 108 10^3/uL (150-450); RED BLOOD COUNT 4.16 10^6/uL (4.30-6.10)
[2024-05-25 13:43] LABS: INR 1.16; PROTHROMBIN TIME 14.4 SECONDS (12.5-14.5)
[2024-05-25 14:19] LABS: IRON (FE) 85 UG/DL (65-175); PERCENT SATURATION 25.8 % (19.7-50.0); TOTAL IRON BINDING CAPACITY 330 UG/DL (250-425)
[2024-05-25 14:20] LABS: ALBUMIN 3.4 G/DL (3.2-5.2); ALKALINE PHOSPHATASE 143 U/L (46-116); ALT/SGPT 37 U/L (7.0-40); AST/SGOT 30 U/L (<34); BLOOD UREA NITROGEN 14 MG/DL (9-23); CALCIUM LEVEL 9.4 MG/DL (8.3-10.6); CARBON DIOXIDE LEVEL 32 MMOL/L (20-31); CHLORIDE LEVEL 103 MMOL/L (98-107); CREATININE FOR GFR 0.75 MG/DL (0.70-1.30); GLOMERULAR FILTRATION RATE > 60.0 (>42); GLUCOSE, FASTING 163 MG/DL (74-106); SODIUM LEVEL 137 MMOL/L (136-145); TOTAL PROTEIN 6.4 G/DL (5.7-8.2)
[2024-05-25 14:21] LABS: FERRITIN 23.3 NG/ML (10.5-307.3)
[2024-05-25 14:22] LABS: FOLATE > 24.00 NG/ML (>5.4); VITAMIN B12 LEVEL 705 PG/ML (211-911)
== END ==
LOC: M LAB 12:16
PROVIDERS: ATTEND Student in an Organized Health Care Education/Training Program
DX: K70.30 Alcoholic cirrhosis of liver without ascites (principal); D64.9 Anemia, unspecified; I85.00 Esophageal varices without bleeding; I81 Portal vein thrombosis; E78.5 Hyperlipidemia, unspecified; E11.9 Type 2 diabetes mellitus without complications; E55.9 Vitamin D deficiency, unspecified

== ENCOUNTER → 2024-05-25 | Outpatient (CLI) | payer MEDICARE, BC ==
[2024-05-25 13:45] LABS: HEMOGLOBIN A1c 7.6 % (4.0-6.0)
[2024-05-25 14:22] LABS: ALBUMIN 3.4 G/DL (3.2-5.2); ALKALINE PHOSPHATASE 145 U/L (46-116); ALT/SGPT 37 U/L (7.0-40); AST/SGOT 32 U/L (<34); BLOOD UREA NITROGEN 14 MG/DL (9-23); CALCIUM LEVEL 9.4 MG/DL (8.3-10.6); CARBON DIOXIDE LEVEL 31 MMOL/L (20-31); CHLORIDE LEVEL 102 MMOL/L (98-107); CREATININE FOR GFR 0.76 MG/DL (0.70-1.30); GLOMERULAR FILTRATION RATE > 60.0 (>42); GLUCOSE, FASTING 161 MG/DL (74-106); SODIUM LEVEL 138 MMOL/L (136-145); TOTAL PROTEIN 6.5 G/DL (5.7-8.2)
[2024-05-25 14:25] LABS: THYROID STIMULATING HORMONE 1.537 uIU/ML (0.55-4.78); TOTAL 25(OH) VITAMIN D 43.8 NG/ML (20.0-100.0)
== END ==
LOC: M LAB 12:11
PROVIDERS: ATTEND Registered Nurse Diabetes Educator
DX: E78.5 Hyperlipidemia, unspecified (principal); E11.9 Type 2 diabetes mellitus without complications; E55.9 Vitamin D deficiency, unspecified

== ENCOUNTER → 2024-09-04 | Outpatient (CLI) | payer MEDICARE, BC ==
[2024-09-04 11:42] LABS: HEMOGLOBIN A1c 7.8 % (4.0-6.0)
[2024-09-04 11:46] LABS: CREATININE, URINE 149.2 MG/DL; MAU/CREAT RATIO 6.7 MCG/MG (0.0-30.0)
[2024-09-04 11:48] LABS: ALBUMIN 3.1 G/DL (3.2-5.2); ALKALINE PHOSPHATASE 158 U/L (40-129); ALT/SGPT 23 U/L (7.0-40); AST/SGOT 23 U/L (<34); BILIRUBIN,TOTAL 0.7 MG/DL (0.3-1.2); BLOOD UREA NITROGEN 14 MG/DL (9-23); CALCIUM LEVEL 9.1 MG/DL (8.3-10.6); CARBON DIOXIDE LEVEL 30 MMOL/L (20-31); CHLORIDE LEVEL 100 MMOL/L (98-107); CREATININE FOR GFR 0.73 MG/DL (0.70-1.30); GLOMERULAR FILTRATION RATE > 60.0 (>42); GLUCOSE, FASTING 232 MG/DL (74-106); POTASSIUM SERUM 4.4 MMOL/L (3.5-5.1); SODIUM LEVEL 136 MMOL/L (136-145); TOTAL PROTEIN 7.4 G/DL (5.7-8.2)
[2024-09-04 11:50] LABS: THYROID STIMULATING HORMONE 1.436 uIU/ML (0.55-4.78)
== END ==
LOC: M LAB 10:37
PROVIDERS: ATTEND Internal Medicine Endocrinology, Diabetes & Metabolism
DX: E11.9 Type 2 diabetes mellitus without complications (principal)

== ENCOUNTER → 2024-10-20 | Outpatient (CLI) | payer MEDICARE, BC | LOC: M RAD 12:25 | PROVIDERS: ATTEND Internal Medicine Pulmonary Disease | DX: R91.8 Other nonspecific abnormal finding of lung field (principal) ==

== ENCOUNTER → 2024-10-20 | Outpatient (CLI) | payer MEDICARE, BC ==
[2024-10-20 14:15] LABS: HEMOGLOBIN A1c 8.1 % (4.0-6.0)
[2024-10-20 14:23] LABS: ALBUMIN 3.2 G/DL (3.2-5.2); ALKALINE PHOSPHATASE 142 U/L (40-129); ALT/SGPT 37 U/L (7.0-40); AST/SGOT 34 U/L (<34); BILIRUBIN,TOTAL 0.9 MG/DL (0.3-1.2); BLOOD UREA NITROGEN 14 MG/DL (9-23); CARBON DIOXIDE LEVEL 32 MMOL/L (20-31); CHLORIDE LEVEL 101 MMOL/L (98-107); CREATININE FOR GFR 0.67 MG/DL (0.70-1.30); GLOMERULAR FILTRATION RATE > 60.0 (>42); GLUCOSE, FASTING 283 MG/DL (74-106); POTASSIUM SERUM 4.1 MMOL/L (3.5-5.1); SODIUM LEVEL 141 MMOL/L (136-145); THYROID STIMULATING HORMONE 1.566 uIU/ML (0.55-4.78); TOTAL PROTEIN 6.9 G/DL (5.7-8.2)
[2024-10-20 14:24] LABS: TOTAL 25(OH) VITAMIN D 35.7 NG/ML (20.0-100.0)
== END ==
LOC: M LAB 12:27
PROVIDERS: ATTEND Registered Nurse Diabetes Educator
DX: E11.9 Type 2 diabetes mellitus without complications (principal); E78.5 Hyperlipidemia, unspecified; I10 Essential (primary) hypertension; E55.9 Vitamin D deficiency, unspecified

== ENCOUNTER → 2024-12-05 | Outpatient (CLI) | payer MEDICARE, BC | LOC: M RAD 09:08 | PROVIDERS: ATTEND Student in an Organized Health Care Education/Training Program | DX: K70.30 Alcoholic cirrhosis of liver without ascites (principal); K64.9 Unspecified hemorrhoids; I85.00 Esophageal varices without bleeding; K76.0 Fatty (change of) liver, not elsewhere classified ==

== ENCOUNTER → 2024-12-26 | Outpatient (CLI) | payer MEDICARE, BC ==
[2024-12-26 13:23] LABS: HEMATOCRIT 38.7 % (42.0-52.0); MEAN CORPUSCULAR HEMOGLOBIN 30.9 pg (27.0-33.0); MEAN CORPUSCULAR HGB CONC 33.6 g/dl (32.0-36.5); MEAN CORPUSCULAR VOLUME 91.9 fl (80.0-96.0); PLATELET COUNT, AUTOMATED 107 10^3/uL (150-450); RED BLOOD COUNT 4.21 10^6/uL (4.30-6.10); WHITE BLOOD COUNT 4.6 10^3/uL (4.0-10.0)
[2024-12-26 13:36] LABS: INR 1.04; PROTHROMBIN TIME 13.9 SECONDS (12.5-14.5)
[2024-12-26 13:58] LABS: ALBUMIN 3.4 G/DL (3.2-5.2); ALKALINE PHOSPHATASE 165 U/L (40-129); ALT/SGPT 46 U/L (7.0-40); AST/SGOT 45 U/L (<34); BILIRUBIN,TOTAL 1.1 MG/DL (0.3-1.2); BLOOD UREA NITROGEN 11 MG/DL (9-23); CALCIUM LEVEL 8.7 MG/DL (8.3-10.6); CARBON DIOXIDE LEVEL 29 MMOL/L (20-31); CHLORIDE LEVEL 100 MMOL/L (98-107); CREATININE FOR GFR 0.65 MG/DL (0.70-1.30); GLOMERULAR FILTRATION RATE > 60.0 (>42); GLUCOSE, FASTING 104 MG/DL (74-106); POTASSIUM SERUM 3.9 MMOL/L (3.5-5.1); SODIUM LEVEL 140 MMOL/L (136-145); TOTAL PROTEIN 6.6 G/DL (5.7-8.2)
== END ==
LOC: M LAB 12:14
PROVIDERS: ATTEND Student in an Organized Health Care Education/Training Program
DX: K70.30 Alcoholic cirrhosis of liver without ascites (principal); D64.9 Anemia, unspecified; I85.00 Esophageal varices without bleeding

== ENCOUNTER 2025-04-24 14:01 | Emergency (ER) | payer MEDICARE, BC ==
[~2025-04-24] VITALS: Ht 185.4 cm; Wt 87.4 kg
[~2025-04-24 14:01] MED LIST changes: -FLOM0.4C39 PO; +LISI40TA10 PO; -LISI40TA4 PO; +TAMS-18 PO
[2025-04-24 15:53] LABS: BASO # 0.0 10^3/uL (0.0-0.2); BASO % 0.5 % (0.0-1.0); EOS # 0.2 10^3/uL (0.0-0.5); EOS % 3.1 % (0.0-3.0); LYMPH # 0.6 10^3/uL (1.5-5.0); LYMPH % 9.7 % (24.0-44.0); MONO # 0.5 10^3/uL (0.0-0.8); MONO % 8.0 % (2.0-8.0); NEUTROPHILS # 4.5 10^3/uL (1.5-8.5); NEUTROPHILS % 78.5 % (36.0-66.0); PLATELET COUNT, AUTOMATED 103 10^3/uL (150-450)
[2025-04-24 15:54] LABS: KETONE, URINE AUTO RFX TRACE mg/dL (NEGATIVE); LEUKOCYTE ESTERASE UR AUTO RFX NEGATIVE (NEGATIVE); MUCUS, URINE RFX SMALL (NEGATIVE); NITRITE, URINE AUTO RFX NEGATIVE (NEGATIVE); RBC, URINE AUTO RFX 8 /HPF (0-3); SQUAM EPITHELIAL CELL UR AURFX 0 /HPF (0-6); WBC, URINE AUTO RFX 1 /HPF (0-3)
[2025-04-24 16:04] LABS: INR 1.11
[2025-04-24 16:16] LABS: ESTIMATED AVERAGE GLUCOSE 180.0 MG/DL (60-110)
[2025-04-24 16:17] LABS: ALT/SGPT 37 U/L (7.0-40); AST/SGOT 39 U/L (<34); CALCIUM LEVEL 8.4 MG/DL (8.3-10.6); CARBON DIOXIDE LEVEL 27 MMOL/L (20-31); CHLORIDE LEVEL 105 MMOL/L (98-107); CREATININE FOR GFR 0.65 MG/DL (0.70-1.30); GLOMERULAR FILTRATION RATE > 90.0 (>42); POTASSIUM SERUM 3.9 MMOL/L (3.5-5.1); SODIUM LEVEL 142 MMOL/L (136-145)
[2025-04-24] MEDS ORDERED: THERTAB52 PO (16:29)
[2025-04-24] MEDS ORDERED: OCUVTAB8 PO (16:29)
[2025-04-24] MEDS ORDERED: OMEG10002 PO (16:29)
[2025-04-24] MEDS ORDERED: CARV3.12 PO (16:30)
[2025-04-24] MEDS ORDERED: HOME MED LIST COMPLETE! XX SCH (16:30)
[2025-04-24] MEDS: LACTULOSE 20 GM/30 ML SYRUP UDC PO ONE (17:10)
[2025-04-24 18:44] VITALS: BP 132/66; TEMP 96.8; O2SAT 98
== END 2025-04-24 18:47 | disposition home or self-care (01) ==
LOC: EDBD 14:01 → M ED 14:01
DX: E11.649 Type 2 diabetes mellitus with hypoglycemia without coma (principal); E72.20 Disorder of urea cycle metabolism, unspecified; Z91.148 Patient's other noncompliance with medication regimen for other reason; E78.5 Hyperlipidemia, unspecified; K70.30 Alcoholic cirrhosis of liver without ascites; Z79.52 Long term (current) use of systemic steroids; Z79.02 Long term (current) use of antithrombotics/antiplatelets; Z79.4 Long term (current) use of insulin; Z79.899 Other long term (current) drug therapy

== ENCOUNTER → 2025-07-03 | Outpatient (CLI) | payer MEDICARE, BC ==
[~2025-07-03] MED LIST changes: +CARV3.12 PO; +OCUVTAB8 PO; +OMEG10002 PO; +THERTAB52 PO
== END ==
LOC: M LAB 11:44
PROVIDERS: ATTEND Registered Nurse Diabetes Educator
DX: E11.65 Type 2 diabetes mellitus with hyperglycemia (principal)

== ENCOUNTER → 2025-07-27 | Outpatient (CLI) | payer MEDICARE, BC ==
[2025-07-27 10:54] LABS: ESTIMATED AVERAGE GLUCOSE 148.0 MG/DL (60-110)
[2025-07-27 10:58] LABS: ALT/SGPT 35 U/L (7.0-40); AST/SGOT 33 U/L (<34); CALCIUM LEVEL 8.8 MG/DL (8.3-10.6); CARBON DIOXIDE LEVEL 32 MMOL/L (20-31); CHLORIDE LEVEL 97 MMOL/L (98-107); CREATININE FOR GFR 0.70 MG/DL (0.70-1.30); FREE T4 0.98 NG/DL (0.89-1.76); GLOMERULAR FILTRATION RATE > 90.0 (>35); POTASSIUM SERUM 4.4 MMOL/L (3.5-5.1); SODIUM LEVEL 136 MMOL/L (136-145); TOTAL 25(OH) VITAMIN D 41.4 NG/ML (20.0-100.0)
== END ==
LOC: M LAB 09:33
PROVIDERS: ATTEND Internal Medicine Endocrinology, Diabetes & Metabolism
DX: E11.65 Type 2 diabetes mellitus with hyperglycemia (principal); Z79.4 Long term (current) use of insulin

== ENCOUNTER → 2025-07-31 | Outpatient (CLI) | payer MEDICARE, BC ==
[2025-07-31 11:56] LABS: ESTIMATED AVERAGE GLUCOSE 148.0 MG/DL (60-110)
[2025-07-31 12:29] LABS: ALT/SGPT 34 U/L (7.0-40); AST/SGOT 35 U/L (<34); CALCIUM LEVEL 9.4 MG/DL (8.3-10.6); CARBON DIOXIDE LEVEL 33 MMOL/L (20-31); CHLORIDE LEVEL 100 MMOL/L (98-107); CREATININE FOR GFR 0.70 MG/DL (0.70-1.30); FREE T4 1.04 NG/DL (0.89-1.76); GLOMERULAR FILTRATION RATE > 90.0 (>35); POTASSIUM SERUM 4.3 MMOL/L (3.5-5.1); SODIUM LEVEL 142 MMOL/L (136-145); TOTAL 25(OH) VITAMIN D 45.6 NG/ML (20.0-100.0)
== END ==
LOC: M LAB 10:25
PROVIDERS: ATTEND Nurse Practitioner Family
DX: E11.65 Type 2 diabetes mellitus with hyperglycemia (principal); Z79.899 Other long term (current) drug therapy